=== PATIENT | male | born 1945 | race Caucasian/White ===

== ENCOUNTER 2021-08-07 19:13 | Inpatient (IN) | payer MEDICARE, SELFPAY ==
[2021-08-07] VITALS (25 sets, daily range): BP systolic 158–210; BP diastolic 67–91; PULSE 47–69; RESP 11–34; TEMP 36.1–36.3; O2SAT 93–98; BMI 24.4
--- NOTE | 2021-08-07 19:41 | ED.GENADUL_ITS ---
Discharge Plan Disposition Patient Disposition: [facility] INPATIENT Condition: Stable Discharge Details Clinical Impression: Esophageal foreign body Primary Care Provider: Unknown,Unknown ED Provider: Abiola Medrano Home Meds and New Rx's Prescriptions: No Action No Known Home Meds 0RF Medical Decision Making 75-year-old male presents to the ER after eating a piece of chicken while at dinner approximately 30 minutes prior to arrival. He states that the chicken was hot, he tried to spit it out and and he feels he may have aspirated the chicken. He is speaking in full sentences. She is retching up his secretions. Upon initial examination we did try the EZ gas flurries which patient was unable to tolerate. No stridor auscultated. 1947: 1 Milligram glucagon IV ordered, 0.5 mg of Ativan, x-ray soft tissue neck ordered. Will reevaluate and try the ED for his again after medications. 2027: Patient returned from x-ray, attempted EZ gas effervescent granules by staff genetic counselor and additional time. Unsuccessful. Patient does have suction at the bedside and is spitting up his secretions. 2035: patient given sips of noelle clau which he was unable to swallow. Imaging protocol: XR of the soft tissues of the neck. COMPARISON: No relevant prior studies available. FINDINGS: Airway: No radiopaque foreign body. No abnormal narrowing. Soft tissues: Epiglottis is normal.. Mild supraglottic gaseous distension of uncertain significance. Bones/joints: The bones are demineralized. Degenerative changes generally mild for age however moderate at C5-C6 where there is joint space narrowing and posterior osteophytosis. No acute fracture or subluxation. Vasculature: Atherosclerosis. IMPRESSION: No acute soft tissue pathology is seen. 2044: Will page surgery for possible scope for FB. 2112: Spoke with Dr. Chow regarding patient case in detail she recommends ordering a CT neck and chest to further differentiate. Order placed. Patient remains hemodynamically stable. Additional measures tried and continued EZ gas effervescient granules with no success. 2246: Spoke with Dr. Santana again regarding CT. There appears to be a foreign body in the upper thoracic esophagus. Dr. Santana to evaluate pt in ED. FINDINGS: Lungs: Mild pulmonary hyperinflation without airspace consolidation. Minor probable scarring in the right lung apex. Pleural spaces: No pneumothorax. No pleural effusion. Heart: Mild cardiomegaly. Mediastinal space: There is a relatively slightly dense focus of material in the upper thoracic esophagus. This measures 29 x 15 x 15 mm and expands the esophagus slightly at this location. No calcifications at this location. There is no significant proximal esophageal swelling. Aorta: Mild dilation of the ascending aorta. Normal caliber of the descending aorta.. Lymph nodes: No enlarged lymph nodes. Diaphragm: Moderate hiatal hernia. Bones/joints: Nonacute rib deformities. No acute fracture or subluxation. Soft tissues: Gynecomastia. IMPRESSION: 1. 29 x 15 x 15 mm probable food bolus in the upper thoracic esophagus. 2. Incidental findings as described. 2322: Dr. Chow he was surgery here at bedside for patient evaluation. She recommends an additional milligram of glucagon IV and lorazepam administration as ordered previously. Dr. Chow any consented patient for procedure and admission orders placed by her. Patient aware of the plan of care and is in agreement with plan. 2342: Max with Anesthesia here at for Patient eval. HPI General Mode of arrival: ambulatory . Date/Time Provider Initiated Documentation: 08/07/21 19:27 . Limitations to Documentation: no limitations . Information obtained by: patient, RN notes reviewed and old records reviewed . HPI Narrative: 75-year-old male presents to the ER after eating a piece of chicken while at dinner approximately 30 minutes prior to arrival. He states that the chicken was hot, he tried to spit it out and and he feels he may have aspirated the chicken. He is speaking in full sentences. She is retching up his secretions. Upon initial examination we did try the EZ gas flurries which patient was unable to tolerate. No stridor auscultated. Related Data Home Medications Medication Instructions Recorded Confirmed Unknown [No Known Home Meds] 08/07/21 08/07/21 Allergies Allergy/AdvReac Type Severity Reaction Status Date / Time No Known Allergies Allergy Unverified 08/07/21 19:36 General Stated Complaint: ThroatFB HOWARD: 2 PFSH All Active Problems (Updated 08/07/21 @ 23:25 by Genny Santaan DO) Esophageal foreign body (Acute) Social History Smoking/Tobacco Use Status: Never Smoking risk assessment performed?: Yes Alcohol Intake: never Drug use: Never Substance use type: does not use Do you feel safe at home: Yes Do you feel safe in your relationship?: Yes Course Vital Signs Vital signs: Vital Signs Temperature 36.1 C L 08/07/21 19:18 Pulse 63 08/07/21 19:18 Respiratory Rate 16 08/07/21 19:18 Blood Pressure 194/75 H 08/07/21 19:18 Pulse Oximetry 98 08/07/21 19:18 Temperature 36.1 C L 08/07/21 19:18 Pulse 63 08/07/21 19:18 Respiratory Rate 16 08/07/21 19:18 Respiratory Effort 08/07/21 19:37 Respiratory Pattern Normal 08/07/21 19:37 Blood Pressure 194/75 H 08/07/21 19:18 Pulse Oximetry 98 08/07/21 19:18 Pain Level 0 08/07/21 19:18
[2021-08-07] MEDS: Simethicone/Sod Bicarb/Cit Ac, 4 gram PACKET 1 PACKET PO (19:45)
--- NOTE | 2021-08-07 19:45 | DI.RAD_ITS ---
Exam(s) XR SOFT TISSUE NECK EXAM: XR SOFT TISSUE NECK CLINICAL HISTORY: R/O foreign body neck. TECHNIQUE: 2D digital imaging was performed. COMPARISON: No exams were available for comparison FINDINGS: BONES: No acute fracture is present. Degenerative disc changes greatest at C5-6. Facet degenerative changes greatest in lower cervical region. SOFT TISSUE:Airway is patent without radiopaque foreign body. Epiglottis is not enlarged. Prevertebra l soft tissues appear unremarkable. Calcifications in region of left common carotid bulb. IMPRESSION: No visible foreign body. DATA REPOSITORY: RADIATION DOSE DELIVERED:
[2021-08-07] MEDS: Glucagon 1 MG VIAL IVP ×2 (19:54→23:50)
--- NOTE | 2021-08-07 20:44 | DI.VRAD_ITS ---
PROCEDURE INFORMATION: Exam: XR Soft Tissue Neck Exam date and time: 08/07/2021 20:14 Age: 75 years old Clinical indication: Pain; Other: Discomfort; Patient HX: PT believes a piece of meat is stuck in his throat TECHNIQUE: Imaging protocol: XR of the soft tissues of the neck. COMPARISON: No relevant prior studies available. FINDINGS: Airway: No radiopaque foreign body. No abnormal narrowing. Soft tissues: Epiglottis is normal.. Mild supraglottic gaseous distension of uncertain significance. Bones/joints: The bones are demineralized. Degenerative changes generally mild for age however moderate at C5-C6 where there is joint space narrowing and posterior osteophytosis. No acute fracture or subluxation. Vasculature: Atherosclerosis. IMPRESSION: No acute soft tissue pathology is seen. Dictated and Authenticated by: Gosia Rosen MD. Ordering:DONNIE Culver MD
--- NOTE | 2021-08-07 21:00 | DI.CT_ITS ---
Exam(s) CT NECK CHEST WO EXAM: CT NECK CHEST WO CLINICAL HISTORY: FB Sensation, R/O Foreign body TECHNIQUE: Imaging Protocol: Axial computed tomography images with coronal and sagittal reformatted images were created and reviewed CONTRAST MATERIAL: Noncontrast COMPARISON: CR,XR XR SOFT TISSUE NECK from 08/07/2021 FINDINGS: Neck CT: Parotids/submandibular/thyroid gland: Normal. Lymphadenopathy: There is scattered lymph nodes seen along the level one to level three all measurin g less than 8 mm in short axis diameter which are physiologic in nature. Carotids/Jugular: Calcifications left common carotid bulb. Minimal calcification on the right. Soft tissues: The floor the mouth is unremarkable. The epiglottis and vocal cords are within normal limits. No evidence of foreign body. Bones: Degenerative changes greatest at C5-6. Chronic appearing mild anterior wedging of T7. Chest CT: Esophagus: Soft tissue density material in the upper thoracic esophagus measuring 15 x 15 x 2.9 cm. No evidence of perforation. There is no significant esophageal wall thickening. Moderate size hiata l hernia. Tracheobronchial tree: Patent where visualized. Mediastinum and Deidre: No dominant adenopathy or fluid collection. Pulmonary parenchyma: No consolidation or dominant measurable mass. Evaluation somewhat limited by re spiratory motion.. Pleura: No effusion or pneumothorax. Heart/Aorta: Atherosclerotic changes. Thoracic aorta ascending mildly ectatic at 3.9 cm.. The heart is dilated. Moderate to severe coronary artery calcifications are seen. Soft tissues: Mild bilateral symmetric gynecomastia. Bones: Old left rib fractures. Mild degenerative changes in the thoracic spine. IMPRESSION: Food bolus in the upper thoracic esophagus. No evidence of perforation or wall thickening. RADIATION DOSE DELIVERED: 684.79mGy.cm Total DLP DATA REPOSITORY: All CT scans at this facility are submitted to the National Radiology Data Registry (NRDR) Dose Index Registry (DIR) with the [employer] (A[employer]). RADIATION OPTIMIZATION: All CT scans at this facility use at least one of these dose optimization te chniques: automated exposure control; mA and/or kV adjustment per patient size (includes targeted exa ms where dose is matched to clinical indication); or iterative reconstruction.
[2021-08-07 21:35] LABS: Source Nasal/Nares
[2021-08-07 22:33] LABS: COVID-19 PCR Negative (Negative)
--- NOTE | 2021-08-07 22:35 | DI.VRAD_ITS ---
PROCEDURE INFORMATION: Exam: CT Neck Without Contrast Exam date and time: 08/07/2021 21:27 Age: 75 years old Clinical indication: Pain; Other: R/O fb; Other: Fb chicken; Patient HX: Possible aspiration fb/ piece of chicken TECHNIQUE: Imaging protocol: Computed tomography images of the neck without contrast. Radiation optimization: All CT scans at this facility use at least one of these dose optimization techniques: automated exposure control; mA and/or kV adjustment per patient size (includes targeted exams where dose is matched to clinical indication); or iterative reconstruction. COMPARISON: CR XR SOFT TISSUE NECK 08/07/2021 20:14 FINDINGS: Nasopharynx: Unremarkable. Oropharynx: Benign-appearing tonsilloliths without inflammation on noncontrast imaging. Hypopharynx: Unremarkable. Larynx: Normal epiglottis. Retropharyngeal space: Unremarkable. Submandibular/Parotid glands: Glands are normal in size. Thyroid: No enlarged or calcified nodules. Lymph nodes: No lymphadenopathy. Trachea: Visualized trachea is unremarkable. Lungs: Unremarkable as visualized. Esophagus: The cervical esophagus is normal in morphology. Bones/joints: Chronic bony changes including mild anterior loss of height at T1. No acute fracture or subluxation. Soft tissues: No significant soft tissue swelling. IMPRESSION: No focal pathology in the cervical esophagus. PROCEDURE INFORMATION: Exam: CT Chest Without Contrast; Diagnostic Exam date and time: 08/07/2021 21:27 Age: 75 years old Clinical indication: Pain; Other: R/O fb; Other: Fb chicken; Patient HX: Possible aspiration fb/ piece of chicken TECHNIQUE: Imaging protocol: Diagnostic computed tomography of the chest without contrast. Radiation optimization: All CT scans at this facility use at least one of these dose optimization techniques: automated exposure control; mA and/or kV adjustment per patient size (includes targeted exams where dose is matched to clinical indication); or iterative reconstruction. COMPARISON: CR XR SOFT TISSUE NECK 08/07/2021 20:14 FINDINGS: Lungs: Mild pulmonary hyperinflation without airspace consolidation. Minor probable scarring in the right lung apex. Pleural spaces: No pneumothorax. No pleural effusion. Heart: Mild cardiomegaly. Mediastinal space: There is a relatively slightly dense focus of material in the upper thoracic esophagus. This measures 29 x 15 x 15 mm and expands the esophagus slightly at this location. No calcifications at this location. There is no significant proximal esophageal swelling. Aorta: Mild dilation of the ascending aorta. Normal caliber of the descending aorta.. Lymph nodes: No enlarged lymph nodes. Diaphragm: Moderate hiatal hernia. Bones/joints: Nonacute rib deformities. No acute fracture or subluxation. Soft tissues: Gynecomastia. IMPRESSION: 1. 29 x 15 x 15 mm probable food bolus in the upper thoracic esophagus. 2. Incidental findings as described. Dictated and Authenticated by: Gosia Rosen MD. Ordering:DONNIE Culver MD
--- NOTE | 2021-08-07 23:19 | W.PM.HP.N ---
Date of service: 08/07/21 Time of Service: 22:49 Assessment and Plan Assessment and plan (1) Esophageal foreign body: Status: Acute Assessment and plan: -After discussing all risks, benefits and alternatives with the patient informed consent was obtained for esophagogastroduodenoscopy in the operating room for foreign body removal. -Discussed procedure and plan with patient's son Sergio as well. He can be reached at [phone]. -Covid NEGATIVE -Will likely keep overnight and discharge home in AM History of Present Illness Narrative: 75 year old male who was eating dinner around 5pm when a piece of chicken became lodged in his throat. Patient states the chicken was hot and he tried to spit it out but inadvertently swallowed it. He denies ever having this problem before and states he does not have any dysphagia at baseline. He has had an EGD once before in 2008 during which he was noted to have evidence of GERD but otherwise normal esophageal anatomy. He was given IV glucagon and EZ granules in the ER with little relief. X-ray was done without note of foreign body. This was followed up with a CT of the neck/chest to better determine location/presence of foreign body. CT confirmed presence of foreign body and due to failure of medical therapy we will proceed with emergent EGD for removal. Review of Systems All systems reviewed & are unremarkable except as noted in HPI and below PFSH All Active Problems (Updated 08/07/21 @ 23:25 by Genny Santana DO) Esophageal foreign body (Acute) Social History Smoking/Tobacco Use Status: Never Smoking risk assessment performed?: Yes Alcohol Intake: never Drug use: Never Substance use type: does not use Do you feel safe at home: Yes Do you feel safe in your relationship?: Yes Meds Allergies and Home Medications Allergies Allergy/AdvReac Type Severity Reaction Status Date / Time No Known Allergies Allergy Unverified 08/07/21 19:36 Home Medications Medication Instructions Recorded Confirmed Type Unknown [No Known Home Meds] 08/07/21 08/07/21 History Exam Const General: cooperative and acute distress (coughing intermittently) mild Nutritional Appearance: thin HENMT Head: normal to inspection, normocephalic and atraumatic Neck Neck: normal visual inspection and full ROM Resp Effort & Inspection: normal respiratory effort, able to speak in complete sentences, cough Quality of cough: wet and not labored Cardio Rate: regular rate Rhythm: regular rhythm GI Inspection: normal to inspection Palpation: soft, no guarding and nontender Neuro General: patient alert, patient awake and patient oriented x3 Results Labs Labs: Laboratory Results - last 24 hr 08/07/21 19:25 COVID-19 Source Nasal/Nares SARS-CoV-2 (PCR) Negative Last Vital Signs Temp 97.0 F L 08/07/21 19:18 Pulse 63 08/07/21 19:18 Resp 16 08/07/21 19:18 BP 194/75 H 08/07/21 19:18 Pulse Ox 98 08/07/21 19:18
[2021-08-07] MEDS: LORazepam 2 MG/ML VIAL (23:50)
--- NOTE | 2021-08-07 23:56 | W.ANESPRE ---
General Info Date of Service Date Performed: 08/07/21 Height: 5 ft 11 in Weight: 79.379 kg Body Mass Index (BMI): 24.4 Surgical Procedure: Operation Date: 08/07/21 23:30 Proposed Procedure Side Surgeon p Gastroscopy Genny Santana, DO Meds Allergies and Home Medications Allergies Allergy/AdvReac Type Severity Reaction Status Date / Time No Known Allergies Allergy Unverified 08/07/21 19:36 Home Medication Medication Instructions Recorded Unknown [No Known Home Meds] 08/07/21 Current Visit Medications: Current Medications Generic Name Dose Route Start Last Admin Trade Name Freq PRN Reason Stop Dose Admin Sodium Chloride 500 mls @ 0 mls/hr 08/07/21 23:27 Saline 500ml Bag IV PRN PRN As Directed Acetaminophen 1,000 mg in 100 mls @ 400 mls/hr 08/07/21 23:27 Ofirmev IVPB Q8H PRN PRN IV Miscellaneous Supplies 1 each 08/07/21 23:30 Iv Access IV DIRECTED LUCINA Ondansetron HCl 4 mg 08/07/21 23:27 Ondansetron 4 Mg/2 Ml Vial IVP Q4H PRN PRN Pantoprazole Sodium 40 mg 08/08/21 08:00 Pantoprazole 40 Mg Vial IVP Q24H LUCINA Sodium Chloride 0 ml 08/07/21 23:27 Normal Saline Flush 10 Ml Syr IVP PRN PRN PFSH Active Problems Active Problems: Problem Status Onset Code Esophageal foreign body [id number] Tobacco Smoking/Tobacco Use Status: Never Alcohol Alcohol Intake: never Substance Use Substance use: Never Substance use type: does not use Vital Signs and Lab Results Vital Signs Most Recent Vital Signs in EMR: Most Recent Vital Signs Temp Pulse Resp BP Pulse Ox 36.3 C L 49 L 12 176/69 H 95 08/07/21 23:55 08/07/21 21:17 08/07/21 23:40 08/07/21 21:17 08/07/21 22:50 Lab Results Blood Type / Crossmatch: No Data to Display Complete Blood Count: No Data to Display Complete Metabolic Panel: No Data to Display Liver Function Panel: No Data to Display Coagulation Panel: No Data to Display Cardiac Panel: No Data to Display Arterial Blood Gas: No Data to Display Venous Blood Gas: No Data to Display Pancreas Panel: No Data to Display Thyroid Panel: No Data to Display Infectious Disease: Coronavirus (COVID-19)(PCR) Negative (Negative) 08/07/21 19:25 08/07/21 Coronavirus 2019 Source Nasal/Nares 08/07/21 19:25 08/07/21 Blood Cultures: No Data to Display Toxicology Panel: No Data to Display Anesthesia Assessment and Plan Anesthesia History Personal History: No History of Anesthesia Complications Family History: No Family History of Anesthesia Complications Exercise Tolerance Exercise Tolerance: Metabolic Equivalents>4 Pertinent Negatives Pertinent Negatives: No Symptoms of GERD, No Major Cardiovascular Symptoms or Complaints, No Major Pulmonary Symptoms or Complaints and No History of CVA/TIA Cardiac & Pulmonary Exam Cardiac Exam: Normal S1/S2 Heart Sounds Pulmonary Exam: Clear Bilateral Breath Sounds Implantable Cardiac Device Does patient have a Pacemaker or an ICD?: No Airway Exam Known Difficult Airway: No Mallampati Class: 3 Mouth Opening: Narrow (< 3cm) Thyromental Distance: Greater than 3 cm Neck Range of Motion: Full ROM Neck Circumference: Normal Teeth Condition: Removable Dentures/Plates Upper, Removable Dentures/Plates Lower and Edentulous ASA Classification ASA Score: ASA 2 Emergency Case?: Yes NPO Status NPO Status: Full Stomach Anesthesia Plan Resuscitation Status: Full Code Anesthesia Technique: General Anesthesia Airway Planned: Endotracheal Tube Monitors Used: Standard Monitors
[2021-08-08] VITALS (8 sets, daily range): BP systolic 117–205; BP diastolic 62–81; PULSE 53–71; RESP 13–22; TEMP 35.6–36.6; O2SAT 95–96
[2021-08-08] MEDS: Water,Injection,Sterile 10 ML VIAL (00:15)
[2021-08-08] MEDS: Lactated Ringers 1,000 ML 50 ML IV (00:40)
--- NOTE | 2021-08-08 02:02 | W.PM.ENDDOP ---
Date of service: 08/08/21 Time of Service: 02:02 Endoscopy Report DATE OF PROCEDURE: 08/08/21 PRE-OP DIAGNOSIS: Esophageal foreign body POST-OP DIAGNOSIS: same PROCEDURE: EGD with removal of foreign body SURGEON: Genny Santana ANESTHESIA TYPE: General LMA/ETT ESTIMATED BLOOD LOSS: 0 PATHOLOGY: none sent COMPLICATIONS: None DISPOSITION: floor INDICATIONS: Patient with reported history of choking on chicken during dinner with continued sensation of foreign body in throat. Medical therapies were attempted but failed. After discussing all risks, benefits and alternatives, informed consent was obtained from the patient to proceed with EGD in the operating room. PROCEDURE START TIME: 12:55 PROCEDURE END TIME: 01:55 COLONOSCOPY RETRACTION TIME: n/a FINDINGS: Large solid piece of chicken lodged within the upper esophagus. Once cleared, esophagus appeared normal. Z line at 40cm, stomach also within normal limits. No biopsies taken. See pictures in chart. PROCEDURE DESCRIPTION: After discussing all risks, benefits and alternatives with the patient, informed consent was obtained for emergent EGD to remove food bolus stuck within patient's esophagus. Patient received two doses of glucagon in the ER as well as EZ granules without success. After induction of general anesthesia was performed, a time out procedure was performed confirming the correct patinet and procedure. Preop antibiotics were not necessary for this case. The scope was introduced through the patients adentuous mouth and into the oropharynx and larynx which appeared normal. The top portion of his esophagus was intubated and at ~20cm the piece of chicken was encountered obstructing the lumen of the esophagus. Gentle suction and pressure was applied to see if the piece would move freely but it did not. Forceps were used to pull pieces of the chicken out through the mouth but only with tiny pieces at a time. A snare was then used to grasp the chicken but again only small amounts at a time. I was able to see clear past the chicken but was unable to dislodge it. After multiple passes of the snare and grasper I was ultimately able to free the chicken enough for it to gently pass into the stomach with the assistance of the scope. Other pieces of undigested chicken were present in the stomach. The remainder of the esophagus and stomach appeared anatomically normal. Pictures were taken for the patient's chart. No biopsies were obtained at this time. Patient tolerated the procedure well without any complications. He will be observed overnight and likely discharged in the morning. His son Sergio was updated via telephone. Patient should remain on a soft mechanical diet as some upper oropharynx and esophageal swelling may occur due to irritation from the gastroscope as well local irritation from foreign body presence.
--- NOTE | 2021-08-08 02:54 | W.ANESPOSTOP ---
Postoperative Evaluation Date, Time and Location Date Performed: 08/08/21 Time Performed: 02:54 Patient Location: Day Surgery Unit Vital Signs Most Recent Imported Vital Signs: Most Recent Vital Signs Temp Pulse Resp BP Pulse Ox 36.6 C 57 L 14 202/79 H 95 08/08/21 02:27 08/08/21 02:27 08/08/21 02:27 08/08/21 02:27 08/08/21 02:27 Pain Score Most Recent Pain Score: Most Recent Pain Score Pain Level 0 08/08/21 02:27 Assessment Mental Status: Awake (Alert & Oriented to Patient Baseline) Airway and Respiratory Function: Patent airway with normal (patient baseline) respiratory exam Cardiovascular Function: Hemodynamically Stable Hydration Status: Adequately Hydrated Nausea & Vomiting: No Nausea or Vomiting Pain: Pt. Denies Any Pain Peripheral Nerve Block: Patient did not receive a nerve block
--- NOTE | 2021-08-08 08:24 | W.PM.DS.N ---
Date of service: 08/08/21 Time of Service: 08:24 DS: Diagnosis Discharge Diagnosis (1) Esophageal foreign body: Status: Acute Discharge Plan Disposition Patient Disposition: HOME Condition: Stable Discharge Details Reason For Visit: Esophageal Foreign Body Admit Date/Time: 08/08/21 02:49 Admit Provider: Genny Santana Attending Provider: Genny Santana Primary Care Provider: Unknown,Unknown Hospital Course Hospital Course: 75 y/o male presented tot he ER after eating dinner with complaints of chicken being lodged in his throat. Patient failed medical management and was taken to the OR for foreign body removal. The food bolus was successfully removed. The patient is feeling much better. Denies any pain or soreness with swallowing. Patient will be d/c home. Strongly encouraged the patient to establish PCP care for follow up and for monitoring of BP. D/C home Home Meds and New Rx's Prescriptions: No Action No Known Home Meds 0RF Discharge Instructions Activity:: Activity as Tolerated Equipment/Supplies:: No Equipment Needed Diet:: Normal Diet Discharge Orders Discharge Orders: Discharge Order (Routine); Ordered 08/08/21 Ordered By: Elizabeth Leroy DS: Summary Time Spent with Patient providing and/or coordinating discharge services: Less than 30 minutes Status at Discharge Functional status at discharge: independent ambulation Overall status at discharge: patient is back to baseline Mental Status: mental status grossly normal Speech and Movement: speech and movement normal Mood: congruent mood Affect: normal affect Exam Const General: cooperative, healthy appearing and comfortable Orientation: alert and oriented x3 Resp Effort & Inspection: normal respiratory effort, no audible wheezes and no cough Psych Mental Status: mental status grossly normal Speech and Movement: speech and movement normal Mood: congruent mood Affect: normal affect DS: Data Vitals/I&O Vitals and I&O: Vital Signs Temperature 36.3 C L 08/08/21 08:00 Temperature Source Tympanic 08/08/21 08:00 Pulse 60 08/08/21 08:00 Pulse Rhythm Regular 08/08/21 03:15 Pulse 67 08/07/21 23:40 Respiratory Rate 18 08/08/21 08:00 Respiratory Effort 08/08/21 03:15 Respiratory Depth Normal 08/08/21 03:15 Respiratory Pattern Normal 08/08/21 02:51 Blood Pressure 175/79 H 08/08/21 08:00 Blood Pressure Mean 99 08/07/21 21:17 Pulse Oximetry 96 08/08/21 08:00 Oxygen Delivery Method Room Air 08/08/21 08:00 Oxygen Flow Rate 0 08/08/21 08:00 Pain Level 0 08/08/21 08:00 Intake & Output 08/07/21 08/08/21 08/08/21 18:59 06:59 18:59 Intake Total 512.5 / 512.5 Output Total 0 / 0 Balance 512.5 / 512.5 Weight 158.2 g Intake: IV 512.5 / 512.5 Oral 0 / 0 Output: Emesis 0 / 0 Other: Emesis Description None Data Completed and Pending Labs on day of discharge: Labs from last 24 hours 08/07/21 19:25 COVID-19 Source Nasal/Nares SARS-CoV-2 (PCR) Negative PFSH All Active Problems (Updated 08/07/21 @ 23:25 by Genny Santana DO) Esophageal foreign body (Acute) Social History Smoking/Tobacco Use Status: Never Smoking risk assessment performed?: Yes Alcohol Intake: never Drug use: Never Substance use type: does not use Do you feel safe at home: Yes Do you feel safe in your relationship?: Yes
== END 2021-08-08 08:58 | disposition home or self-care (01) | DRG 395 ==
LOC: ER 23:31 → SUR 08-08 02:42 → MS 08-08 02:53 → ER 08-08 08:45 → SUR 08-08 08:47 → MS 08-08 09:07
PROVIDERS: Admitting Provider Surgery; Emergency Provider Registered Nurse Emergency; Visit Provider Surgery
PROC: 0DJ68ZZ Inspection of Stomach, Via Natural or Artificial Opening Endoscopic (ICD-10-PCS; CPT 43235; principal; 2021-08-07 23:30)
DX: T18.128A Food in esophagus causing other injury, initial encounter (principal)
CPT/HCPCS: 43215; 71271; 87635; 96374; 99222; 99238; 99285; 70360; 70490; J1100; J1610; J1885; J2060; J2704

== ENCOUNTER 2024-06-15 17:14 | Inpatient (IN) | payer MEDICARE, SELFPAY ==
[2024-06-15] VITALS (65 sets, daily range): BP systolic 118–182; BP diastolic 37–76; PULSE 48–64; RESP 13–22; TEMP 37.6–38.7; O2SAT 81–97
--- NOTE | 2024-06-15 17:15 | RT.EKG_ITS ---
APPROVED REPORT Exam: Resting ECG Reason for Exam: confusion Patient Location: E HR:60 bpm ECG Measurements Heart Rate 60 AXIS ID 206 P 3 QRSd 88 QRS -22 QT 378 T 47 QTc 379 Conclusion Sinus rhythm 60 normal axis no stemi
--- NOTE | 2024-06-15 17:46 | W.ED.GENAD ---
Discharge Plan Disposition Patient Disposition: Admit to [facility] Discharge Details Clinical Impression: Encephalopathy due to influenza A virus Primary Care Provider: María Elena Bradley ED Provider: Candice Mendoza Home Meds and New Rx's Prescriptions: No Action No Known Home Meds HPI General Date/Time Provider Initiated Documentation: 06/15/24 17:34. HPI Narrative: Husam (prefers Enrique) is a 78 year old male who presents to the emergency department today for evaluation of sudden onset of confusion and unsteadiness. Son reports that Enrique lives in a separate part of the house from him, but they spend a lot of time together. Last known well 1 PM. 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 He was brought immediately to the emergency department because they are concerned it might be a stroke or acute illness. He was found to be febrile in triage. Son reports a mild cough starting today. Enrique denies headache, dizziness, vision changes, ear pain, sore throat, chest pain, shortness of breath, nausea/vomiting, abdominal pain, change in bowel or bladder function, or weakness. Denies significant past medical history, is not currently on any medications. No history of tobacco use. Physical exam remarkable for patient who is alert and oriented x 2, in no acute distress. He is able to answer questions and follow most commands, however had trouble with neurological exam. He was able to complete finger to finger with left eye covered, but was unable to perform the same with the right eye covered. No obvious facial palsy or upper/lower extremity drift. NIHSS score 0. PERRL, EOMs intact., Unable to visualize TMs. No cervical or submandibular lymphadenopathy. Moist mucous membranes. Easy work of breathing, lung sounds clear bilaterally. Normal heart sounds. Abdomen soft, nondistended, nontender palpation. No obvious JVD or pedal edema. D/dx includes but is not limited to: CVA/TIA, occult infection such as pneumonia or UTI, viral illness such as COVID-19 or influenza, electrolyte imbalance, cardiac arrhythmia, ACS, dehydration, hypoglycemia I independently interpreted the following tests: EKG reassuring, normal sinus rhythm rate 60, no changes consistent with acute ischemia. Flu a positive, COVID-negative. CBC, CMP, UA, serial troponins reassuring. Mild hypomagnesemia, magnesium 1.7. Chest x-ray unremarkable, no obvious infiltrates. This was confirmed by radiologist. CTA of head performed, no evidence of large vessel occlusion, however patient does have a 7 mm hypodensity in left posterior subinsular distribution that may be chronic or subacute acute lacunar infarct. Moderate to severe stenosis noted in the left vertebral artery proximal V4/distal V3 segment, left MOVING PICTURE OPERATOR P1 segment, and right vertebral artery proximal V4 segment. Moderate 50% ostial stenosis of left vertebral artery and short segment tandem moderate stenosis of 60 to 70% 1.5 cm downstream. While in the emergency department, Bill received Tamiflu and Tylenol for fever and flu. Discussed case with Dr. Coyle, [facility] hospitalist; pt to be admitted (held in ED) Related Data Home Medications ?Medication ?Instructions ?Recorded ?Confirmed Unknown [No Known Home Meds] 08/07/21 06/15/24 Allergies Allergy/AdvReac Type Severity Reaction Status Date / Time No Known Allergies Allergy Verified 06/15/24 17:32 General Stated Complaint: AMS/LOC HOWARD: 3 Review of Systems Narrative: See HPI Exam Const General: cooperative, comfortable, no acute distress, well developed and well groomed Nutritional Appearance: average body habitus Orientation: alert, oriented to person, oriented to time and confused Limitations: altered mental status HENMT Head: normal to inspection, normocephalic and atraumatic Ears: hearing grossly normal bilaterally, mastoids normal and unable to visualize TM bilaterally General nose exam: external nose normal Face and sinus: normal facial exam Mouth: oral mucosae normal Eyes Periorbital: periorbital findings normal Pupils: PERRL EOM: EOM intact bilaterally Neck Neck: normal visual inspection, no lymphadenopathy and no meningeal signs Resp Effort & Inspection: normal respiratory effort and able to speak in complete sentences Auscultation: clear to auscultation bilaterally Cardio Rate: regular rate Rhythm: regular rhythm GI Inspection: normal to inspection and non-distended Palpation: soft, not firm, no guarding, not rigid and nontender Skin General skin exam: no rashes or lesions noted Neuro General: patient alert, patient awake, tone normal, moves all extremities and no focal motor deficits Cranial Nerves: PERRL, EOM intact bilaterally, facial strength normal (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), tongue midline and able to rotate head bilaterally Speech: speech normal Motor: muscle tone normal throughout and strength 5/5 throughout Sensory Exam: no sensory deficits noted Coordination: rapid alternating movement UE normal Extrem General: normal to inspection and no pedal edema Course Vital Signs Vital signs: Vital Signs Temperature 38.6 C H 06/15/24 17:25 Pulse 61 06/15/24 17:25 Blood Pressure 182/76 H 06/15/24 17:25 Pulse Oximetry 94 06/15/24 17:25 Temperature 38.6 C H 06/15/24 17:25 Pulse 61 06/15/24 17:25 Blood Pressure 182/76 H 06/15/24 17:25 Pulse Oximetry 94 06/15/24 17:25 Pain Level 0 06/15/24 17:25 Medical Decision Making Imaging Data Radiologic Study: Radiologist's impression: PROCEDURE INFORMATION: Exam: CTA Head Without And With Contrast, Arteriography Exam date and time: 06/15/2024 6:14 PM Age: 78 years old Clinical indication: Stroke-like symptoms; Altered mental status/memory loss; Additional info: Confusion TECHNIQUE: Imaging protocol: Computed tomographic angiography of the head without and with contrast. Exam focused on the arteries. 3D rendering (Not supervised by radiologist): MIP and/or 3D reconstructed images were created by the technologist. Contrast material: OMNIPAQUE 350; Contrast volume: 70 ml; Contrast route: INTRAVENOUS (IV); Other technique: STROKE PROTOCOL was implemented. COMPARISON: CT NECK CHEST WO 08/07/2021 9:27 PM FINDINGS: ANTERIOR CIRCULATION: HUSAM JONES Preliminary Radiology Report Page 2 of 4 Right internal carotid artery: The right ICA petrous segment is unremarkable. Cavernous and supraclinoid segments demonstrate moderate calcific plaque without significant stenosis. Right middle cerebral artery: Unremarkable. No occlusion or significant stenosis. No aneurysm. Right anterior cerebral artery: Unremarkable. No occlusion or significant stenosis. No aneurysm. The anterior communicating artery is unremarkable. Left internal carotid artery: Petrous segment demonstrates mild calcific plaque without significant stenosis. Cavernous segment demonstrates moderate calcific plaque without significant stenosis. Supraclinoid segment demonstrates moderate calcific plaque without significant stenosis. Left middle cerebral artery: Unremarkable. No occlusion or significant stenosis. No aneurysm. Left anterior cerebral artery: Left A1 segment is dominant. No occlusion or significant stenosis. No aneurysm. POSTERIOR CIRCULATION: Right vertebral artery: Short segment moderate mixed plaque in the proximal V4 segment producing moderate 50-60% stenosis. No occlusion. No aneurysm. Left vertebral artery: Atherosclerotic contour irregularity mild-moderate mixed plaque in the distal V3 to proximal V4 segment producing short segment moderate-severe 70% stenosis. No occlusion. No aneurysm. Basilar artery: Mild atherosclerotic contour irregularity. No occlusion or significant stenosis. No aneurysm. Right posterior cerebral artery: Unremarkable. No occlusion or significant stenosis. No aneurysm. Left posterior cerebral artery: Atherosclerotic contour irregularity with moderate 60-70% P1 segment stenosis. Normal symmetrical downstream flow preserved. No aneurysm. Other arteries: Moderate calcific atherosclerosis. Veins: The dural venous sinuses and major cortical veins enhance appropriately without evidence of thrombosis. Right dominant venous drainage. HEAD: Brain: Mild generalized cerebral/cerebellar atrophy. Mild periventricular bilateral white matter hypodensities which are nonspecific but most commonly associated with chronic microvascular ischemia in this age group. The IACs are grossly normal. No extra-axial fluid collections. No evidence of acute intracranial hemorrhage. Cerebral/cerebellar rossi-white matter differentiation is well maintained. No CT evidence of large territory acute or subacute intracranial ischemia/infarct. 7 mm hypodensity in the left posterior subinsular distribution consistent with chronic or subacute lacunar infarct. No associated mass effect or hemorrhage. No intracranial mass lesions. No midline shift or herniation. No enhancing brain lesions or vascular malformations are identified. Cerebral ventricles: Mild compensatory ventriculomegaly secondary to central atrophy. Pituitary gland and sella: The sella is grossly normal. Bones: No acute osseous findings. Orbital cavities: No acute intraorbital findings. Prior bilateral ocular cataract surgery. Paranasal sinuses: Visualized paranasal sinuses are clear. Mastoid air cells: Visualized mastoid air cells are clear. Soft tissues: No acute soft tissue findings. Other findings: No asymmetric vascular hyperdensities suggestive of thrombosis are identified. IMPRESSION: 1. No large vessel occlusions. 2. 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 3. Moderate 60-70% stenosis in the left MOVING PICTURE OPERATOR P1 segment. 4. Moderate 50-60% stenosis in the right vertebral artery proximal V4 segment. 5. 7 mm hypodensity in the left posterior subinsular distribution could be chronic or late subacute lacunar infarct. No hemorrhage or mass effect. 6. No intracranial hemorrhage or mass effect. 7. These findings initiated a critical results reporting process. PROCEDURE INFORMATION: Exam: CTA Neck Without And With Contrast Exam date and time: 06/15/2024 6:14 PM Age: 78 years old Clinical indication: Stroke-like symptoms; Altered mental status/memory loss; Additional info: Confusion TECHNIQUE: Imaging protocol: Computed tomographic angiography of the neck without and with contrast. Exam focused on the cervical segments of the vasculature. 3D rendering (Not supervised by radiologist): MIP and/or 3D reconstructed images were created by the technologist. Contrast material: OMNIPAQUE 350; Contrast volume: 70 ml; Contrast route: INTRAVENOUS (IV); COMPARISON: CT NECK CHEST WO 08/07/2021 9:27 PM FINDINGS: Right common carotid artery: Mild tortuosity. Mild calcific plaque. No stenosis. No dissection or occlusion. Right internal carotid artery: Mild-moderate mixed calcific plaque in the left carotid bulb and proximal ICA. Moderate distal tortuosity with mild kinking but no significant stenosis. No dissection or occlusion. Right external carotid artery: Mild ostial calcific plaque. Mild tortuosity and kinking. No significant stenosis. No dissection or occlusion. Left common carotid artery: Mild tortuosity. No stenosis. No dissection or occlusion. Left internal carotid artery: Moderate calcific plaque in the left carotid bulb and proximal most ICA segment. Mild-moderate distal tortuosity. Moderate 50% stenosis in the proximal ICA segment. No dissection or occlusion. Left external carotid artery: Mild tortuosity. No stenosis. No dissection or occlusion. Right vertebral artery: Mild tortuosity and calcific plaque, otherwise normal cervical segment. No significant stenosis. No dissection or occlusion. Left vertebral artery: Anatomic variant origin of the left vertebral artery directly from the aortic arch. Ostial mixed plaque produces moderate 50% ostial stenosis. There is also tandem moderate stenosis of 60-70% about 1.5 cm from the ostium. No dissection or occlusion. Brachiocephalic artery: The brachiocephalic artery demonstrates mild calcific plaque without stenosis. Right subclavian artery: The right subclavian artery demonstrates mild calcific plaque without stenosis. Left subclavian artery: The left subclavian artery demonstrates mild calcific plaque without stenosis. Aorta: The visualized aortic arch demonstrates mild-moderate ectasia and calcific plaque without evidence of dissection or gross aneurysm. Thyroid: 11 mm low-density nodule in the right thyroid lobe which does not require further evaluation. Soft tissues: No significant soft tissue swelling or hematoma. Bones/joints: No acute osseous abnormalities are identified. Chronic moderate superior endplate compression deformity C7. Lungs: Mild to moderate right and mild left apical pleuroparenchymal scarring. Granulomatous calcification in the right upper lobe. IMPRESSION: 1. No evidence of arterial occlusion, dissection, or aneurysm/pseudoaneurysm. 2. Moderate 50% ostial stenosis of the left vertebral artery, which has a variant origin directly from the aortic arch. There is also a short segment tandem moderate stenosis of 60-70% about 1.5 cm downstream from this. 3. Additional nonemergent findings detailed above. REFERENCES: NASCET CRITERIA. The degree of stenosis in the cervical segment of the internal carotid artery is based on NASCET criteria. Normal is no stenosis. Mild is less than 50% stenosis. Moderate is 50- 69% stenosis. Severe is 70% to 99% stenosis. Total occlusion is no detectable patent lumen. Thank you for allowing us to participate in the care of your patient. Dictated and Authenticated by: Darron Henderson MD 06/15/2024 8:25 PM Eastern Time ([place] & [place]) Quality:SDOH Health Related Social Needs: No Data to Display PFSH All Active Problems (Updated 06/15/24 @ 22:51 by Cesar Coyle) Hypomagnesemia (Acute) Influenza A H1N1 infection (Acute) TIA (transient ischemic attack) (Acute) Encephalopathy due to influenza A virus (Acute) Pain, foot (Acute) Ingrowing nail (Acute) Corns and callosities (Acute) Medical History Fracture Multiple, cervical and lumbar. S/p fall in early . Social History Smoking/Tobacco Use Status: Never Smoking risk assessment performed?: Yes Alcohol Intake: never Drug use: Never Substance use type: does not use Housing: apartment Do you feel safe at home: Yes Do you feel safe in your relationship?: Yes
[2024-06-15 17:53] LABS: Abs Immature Grans 0.02 10^3/uL (0.0-0.06); Absolute Basophil Count 0.02 10^3/uL (0.0-0.2); Absolute Eosinophil Count 0.04 10^3/uL (0.0-0.7); Absolute Lymphocyte Count 0.29 10^3/uL (1.2-3.4); Absolute Monocyte Count 0.32 10^3/uL (0.1-0.8); Absolute Neutrophil Count 7.32 10^3/uL (1.2-6.7); Basophils % 0.2 %; Eosinophils % 0.5 %; HCT 42.8 % (40.0-50.0); HGB 13.5 g/dL (13.5-17.5); Immature Grans % 0.2 %; Lymphocytes % 3.6 %; MCH 27.4 pg (27.0-33.0); MCHC 31.5 % (32.0-36.0); MCV 87 fL (80-95); MPV 8.8 fL (8.0-11.0); Neutrophils % 91.5 %; Platelet Count 197 10^3/uL (130-400); RBC 4.92 10^6/uL (4.36-5.78); RDW 15.5 % (11.8-14.1); WBC 8.01 10^3/uL (4.4-10.8)
--- NOTE | 2024-06-15 18:00 | DI.CT_ITS ---
Exam(s) CT BRAIN NECK CTA EXAM: CT BRAIN NECK CTA CLINICAL HISTORY: new confusion, unable to perform neuro exam. TECHNIQUE: Imaging Protocol: Axial CT angiography was performed with multi-slice acquisition and mu lti-planar and MIP reconstructions. CONTRAST MATERIAL: Intravenous: Omnipaque 350 Contrast volume:70 ml COMPARISON: CT CT NECK CHEST WO from 08/07/2021 FINDINGS: CT Head W/O and W contrast: Ventricles and Extra axial spaces: Normal in size and morphology for the patient's age. Hemorrhage: None. Cerebral parenchyma: No evidence of acute infarct or mass. Mild white matter changes of small vess el disease. Midline shift: None. Brainstem/Cerebellum: No acute findings.. Calvarium: Normal. Visualized Paranasal sinuses/Mastoids: Clear. Soft Tissues: Unremarkable. Enhancement: Normal. CTA Brain W: Internal Carotid Arteries: Petrous: Normal. Cavernous: Moderate calcific plaque without significant stenosis. Cerebral: Moderate calcific plaque without significant stenosis. Middle Cerebral Arteries: Right: No aneurysm, occlusion or significant stenosis. Left: No aneurysm, occlusion or significant stenosis. Anterior Cerebral Arteries: Right: No aneurysm, occlusion or significant stenosis. Left: Dominant. No aneurysm, occlusion or significant stenosis. Posterior cerebral Arteries: Right: No aneurysm, occlusion or significant stenosis. Left: Irregular atheromatous sclerotic plaque causing moderate stenosis at the P1 segment, approximat lolly 60-70 percent. No aneurysm, occlusion. Vertebral Arteries: Right: Moderate practiced the proximal V4 segment causing roughly 50 percent stenosis. No aneurysm. Left: Mixed plaque of distal V3 through proximal V4 segment producing moderate to severe stenosis of approximately 70 percent. No aneurysm, Basilar Artery: Mild atherosclerotic plaque. No aneurysm, occlusion or significant stenosis. Venous sinuses: Patent. CTA Neck W: Common Carotid: Right: No dissection, occlusion or significant stenosis. Left: No dissection, occlusion or significant stenosis. External Carotid: Right: Tortuous. No dissection, occlusion or significant stenosis. Left: Mildly tortuous. No dissection, occlusion or significant stenosis. Internal Carotid: Right: Tortuous distally. No dissection, occlusion or significant stenosis. Left: Moderate plaque at the common carotid bulb and proximal ICA causing approximately [address] enosis. No dissection, occlusion or significant stenosis. Vertebral Artery: Right: Mildly tortuous. No dissection, occlusion or significant stenosis. Left: Rises directly from the aortic arch. Approximate 50 percent stenosis at the origin due to mixe d plaque. Approximate 60-70 percent stenosis the proximal vertebral artery approximate 1.5 centimete rs from the ostium. No dissection, occlusion or significant stenosis. Lung Apices: No acute findings. Bones: No acute abnormality. Soft Tissues: Normal. IMPRESSION: 1. CTA brain: Moderate to severe stenosis in the the distal left vertebral artery, proximal V4 segmen t. Moderate stenosis in the left neck P1 segment. Moderate stenosis of the proximal V4 segment of t he right vertebral artery. 2. Head CT: No acute abnormality. 3. CTA neck: There is an approximate 50 percent stenosis at the ostium of the left vertebral artery. Additional 70 - 60 percent stenosis approximately 1.5 cm distal to the ostium. Moderate plaque at t he common carotid bulb and proximal ICA causing approximately 50 percent stenosis. RADIATION DOSE DELIVERED: 2,131.69mGy.cm Total DLP DATA REPOSITORY: All CT scans at this facility are submitted to the National Radiology Data Registry (NRDR) Dose Index Registry (DIR) with the [employer] (A[employer]). RADIATION OPTIMIZATION: All CT scans at this facility use at least one of these dose optimization te chniques: automated exposure control; mA and/or kV adjustment per patient size (includes targeted exa ms where dose is matched to clinical indication); or iterative reconstruction.
--- NOTE | 2024-06-15 18:00 | DI.RAD_ITS ---
Exam(s) XR CHEST 2V PA LATERAL EXAM: XR CHEST 2V PA LATERAL CLINICAL HISTORY: cough TECHNIQUE: 2D digital imaging was performed. Two views. COMPARISON: CR CHEST ONE VIEW IN RAD DEPT from 01/25/[address] NECK CHEST WO from 08/07/2021 FINDINGS: HEART: Normal mildly enlarged. Aorta: Tortuous. PULMONARY VASCULATURE: Normal. MEDIASTINUM: Unremarkable. LUNGS: Clear. PLEURAL SPACE: No pleural effusion or pneumothorax. BONE:Mild upper thoracic compression fracture, new since prior chest CT. At the lower edge of the fi lm there is a moderate compression fracture which may be L1. SOFT TISSUES: Unremarkable. IMPRESSION: No acute abnormality. DATA REPOSITORY: RADIATION DOSE DELIVERED:
[2024-06-15 18:11] LABS: ALT 22 U/L (16-63); AST 15 U/L (15-37); Albumin 3.5 g/dL (3.4-5.0); Alkaline Phosphatase 95 U/L (46-116); Anion Gap 6.6 mmol/L (3-11); BUN 12 mg/dL (7-18); Bilirubin, Total 0.42 mg/dL (0.2-1.0); CO2 30.4 mmol/L (21.0-32.0); Calcium 8.5 mg/dL (8.5-10.1); Chloride 102 mmol/L (98-107); Estimated GFR 77.52 (mL/min/1.73m2); Glucose 109 mg/dL (74-106); Magnesium 1.7 mg/dL (1.8-2.4); Potassium 4.4 mmol/L (3.5-5.1); Sodium 139 mmol/L (136-145); Total Protein 6.8 g/dL (6.4-8.2); Troponin I 13 ng/L (<or=76)
[2024-06-15] MEDS: Normal Saline - Diluent 50 ML VIAL IJ (18:14)
[2024-06-15] MEDS: Omnipaque 350 MG/ML 100 ML BTL IJ (18:16)
[2024-06-15 18:54] LABS: Bilirubin Negative (Negative); Blood Negative (Negative); Clarity Clear (Clear); Glucose Negative (Negative); Ketones Negative (Negative); Leukocyte Esterase Negative (Negative); Nitrite Negative (Negative); Specific Gravity 1.015 (1.005-1.025); Urobilinogen 0.2 mg/dL (Up to 0.2); pH 5.5 (5-8)
[2024-06-15 19:25] LABS: COVID-19 PCR Negative (Negative); Influenza A PCR Positive (Negative); Influenza B PCR Negative (Negative); RSV PCR Negative (Negative); Source NASOPHARYNX
--- NOTE | 2024-06-15 19:50 | DI.VRAD_ITS ---
PROCEDURE INFORMATION: Exam: XR Chest Exam date and time: 06/15/2024 6:27 PM Age: 78 years old Clinical indication: Cough TECHNIQUE: Imaging protocol: Radiologic exam of the chest. Views: 2 views. COMPARISON: CT NECK CHEST WO 08/07/2021 9:27 PM FINDINGS: Lungs: Lungs are symmetrically hyperinflated. No focal consolidation or evidence of pulmonary edema. Pleural spaces: No pleural effusion. No pneumothorax. Heart/Mediastinum: Cardiomediastinal contours are at the upper limits of normal for size. Vasculature: Descending thoracic aorta is tortuous in course. There are vascular calcifications of the aortic arch. Bones/joints: Partially visualized upper lumbar vertebral body compression deformity of uncertain chronicity, incompletely evaluated on this exam. IMPRESSION: 1. No focal consolidation. 2. Hyperinflation. 3. Age-indeterminate upper lumbar vertebral body compression deformity incompletely evaluated on this exam. Correlate clinically. Dictated and Authenticated by: Nghia Garcia MD. Orderin Felix Harvey MD
[2024-06-15 19:55] LABS: Troponin I 14 ng/L (<or=76)
--- NOTE | 2024-06-15 20:25 | DI.VRAD_ITS ---
PROCEDURE INFORMATION: Exam: CTA Head Without And With Contrast, Arteriography Exam date and time: 06/15/2024 6:14 PM Age: 78 years old Clinical indication: Stroke-like symptoms; Altered mental status/memory loss; Additional info: Confusion TECHNIQUE: Imaging protocol: Computed tomographic angiography of the head without and with contrast. Exam focused on the arteries. 3D rendering (Not supervised by radiologist): MIP and/or 3D reconstructed images were created by the technologist. Contrast material: OMNIPAQUE 350; Contrast volume: 70 ml; Contrast route: INTRAVENOUS (IV); Other technique: STROKE PROTOCOL was implemented. COMPARISON: CT NECK CHEST WO 08/07/2021 9:27 PM FINDINGS: ANTERIOR CIRCULATION: Right internal carotid artery: The right ICA petrous segment is unremarkable. Cavernous and supraclinoid segments demonstrate moderate calcific plaque without significant stenosis. Right middle cerebral artery: Unremarkable. No occlusion or significant stenosis. No aneurysm. Right anterior cerebral artery: Unremarkable. No occlusion or significant stenosis. No aneurysm. The anterior communicating artery is unremarkable. Left internal carotid artery: Petrous segment demonstrates mild calcific plaque without significant stenosis. Cavernous segment demonstrates moderate calcific plaque without significant stenosis. Supraclinoid segment demonstrates moderate calcific plaque without significant stenosis. Left middle cerebral artery: Unremarkable. No occlusion or significant stenosis. No aneurysm. Left anterior cerebral artery: Left A1 segment is dominant. No occlusion or significant stenosis. No aneurysm. POSTERIOR CIRCULATION: Right vertebral artery: Short segment moderate mixed plaque in the proximal V4 segment producing moderate 50-60% stenosis. No occlusion. No aneurysm. Left vertebral artery: Atherosclerotic contour irregularity mild-moderate mixed plaque in the distal V3 to proximal V4 segment producing short segment moderate-severe 70% stenosis. No occlusion. No aneurysm. Basilar artery: Mild atherosclerotic contour irregularity. No occlusion or significant stenosis. No aneurysm. Right posterior cerebral artery: Unremarkable. No occlusion or significant stenosis. No aneurysm. Left posterior cerebral artery: Atherosclerotic contour irregularity with moderate 60-70% P1 segment stenosis. Normal symmetrical downstream flow preserved. No aneurysm. Other arteries: Moderate calcific atherosclerosis. Veins: The dural venous sinuses and major cortical veins enhance appropriately without evidence of thrombosis. Right dominant venous drainage. HEAD: Brain: Mild generalized cerebral/cerebellar atrophy. Mild periventricular bilateral white matter hypodensities which are nonspecific but most commonly associated with chronic microvascular ischemia in this age group. The IACs are grossly normal. No extra-axial fluid collections. No evidence of acute intracranial hemorrhage. Cerebral/cerebellar rossi-white matter differentiation is well maintained. No CT evidence of large territory acute or subacute intracranial ischemia/infarct. 7 mm hypodensity in the left posterior subinsular distribution consistent with chronic or subacute lacunar infarct. No associated mass effect or hemorrhage. No intracranial mass lesions. No midline shift or herniation. No enhancing brain lesions or vascular malformations are identified. Cerebral ventricles: Mild compensatory ventriculomegaly secondary to central atrophy. Pituitary gland and sella: The sella is grossly normal. Bones: No acute osseous findings. Orbital cavities: No acute intraorbital findings. Prior bilateral ocular cataract surgery. Paranasal sinuses: Visualized paranasal sinuses are clear. Mastoid air cells: Visualized mastoid air cells are clear. Soft tissues: No acute soft tissue findings. Other findings: No asymmetric vascular hyperdensities suggestive of thrombosis are identified. IMPRESSION: 1. No large vessel occlusions. 2. 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 3. Moderate 60-70% stenosis in the left CASH CONTROLLER P1 segment. 4. Moderate 50-60% stenosis in the right vertebral artery proximal V4 segment. 5. 7 mm hypodensity in the left posterior subinsular distribution could be chronic or late subacute lacunar infarct. No hemorrhage or mass effect. 6. No intracranial hemorrhage or mass effect. 7. These findings initiated a critical results reporting process. An addendum will be issued at the time of clinician notification. ASSESSMENT: ASPECTS ([place] Stroke Program Early CT Score) is 9. PROCEDURE INFORMATION: Exam: CTA Neck Without And With Contrast Exam date and time: 06/15/2024 6:14 PM Age: 78 years old Clinical indication: Stroke-like symptoms; Altered mental status/memory loss; Additional info: Confusion TECHNIQUE: Imaging protocol: Computed tomographic angiography of the neck without and with contrast. Exam focused on the cervical segments of the vasculature. 3D rendering (Not supervised by radiologist): MIP and/or 3D reconstructed images were created by the technologist. Contrast material: OMNIPAQUE 350; Contrast volume: 70 ml; Contrast route: INTRAVENOUS (IV); COMPARISON: CT NECK CHEST WO 08/07/2021 9:27 PM FINDINGS: Right common carotid artery: Mild tortuosity. Mild calcific plaque. No stenosis. No dissection or occlusion. Right internal carotid artery: Mild-moderate mixed calcific plaque in the left carotid bulb and proximal ICA. Moderate distal tortuosity with mild kinking but no significant stenosis. No dissection or occlusion. Right external carotid artery: Mild ostial calcific plaque. Mild tortuosity and kinking. No significant stenosis. No dissection or occlusion. Left common carotid artery: Mild tortuosity. No stenosis. No dissection or occlusion. Left internal carotid artery: Moderate calcific plaque in the left carotid bulb and proximal most ICA segment. Mild-moderate distal tortuosity. Moderate 50% stenosis in the proximal ICA segment. No dissection or occlusion. Left external carotid artery: Mild tortuosity. No stenosis. No dissection or occlusion. Right vertebral artery: Mild tortuosity and calcific plaque, otherwise normal cervical segment. No significant stenosis. No dissection or occlusion. Left vertebral artery: Anatomic variant origin of the left vertebral artery directly from the aortic arch. Ostial mixed plaque produces moderate 50% ostial stenosis. There is also tandem moderate stenosis of 60-70% about 1.5 cm from the ostium. No dissection or occlusion. Brachiocephalic artery: The brachiocephalic artery demonstrates mild calcific plaque without stenosis. Right subclavian artery: The right subclavian artery demonstrates mild calcific plaque without stenosis. Left subclavian artery: The left subclavian artery demonstrates mild calcific plaque without stenosis. Aorta: The visualized aortic arch demonstrates mild-moderate ectasia and calcific plaque without evidence of dissection or gross aneurysm. Thyroid: 11 mm low-density nodule in the right thyroid lobe which does not require further evaluation. Soft tissues: No significant soft tissue swelling or hematoma. Bones/joints: No acute osseous abnormalities are identified. Chronic moderate superior endplate compression deformity C7. Lungs: Mild to moderate right and mild left apical pleuroparenchymal scarring. Granulomatous calcification in the right upper lobe. IMPRESSION: 1. No evidence of arterial occlusion, dissection, or aneurysm/pseudoaneurysm. 2. Moderate 50% ostial stenosis of the left vertebral artery, which has a variant origin directly from the aortic arch. There is also a short segment tandem moderate stenosis of 60-70% about 1.5 cm downstream from this. 3. Additional nonemergent findings detailed above. REFERENCES: NASCET CRITERIA. The degree of stenosis in the cervical segment of the internal carotid artery is based on NASCET criteria. Normal is no stenosis. Mild is less than 50% stenosis. Moderate is 50-69% stenosis. Severe is 70% to 99% stenosis. Total occlusion is no detectable patent lumen. Dictated and Authenticated by: Darron Henderson MD. Orderin Felix Harvey MD
--- NOTE | 2024-06-15 20:28 | DI.VRAD_ITS ---
Addendum created by Darron Henderson MD on 06/15/2024 8:28:06 PM EST: Addendum: THIS REPORT CONTAINS FINDINGS THAT MAY BE CRITICAL TO PATIENT CARE. The findings were verbally communicated via telephone conference with MILI CHAPIN at 8:27 PM EST on 06/15/2024. The findings were acknowledged and understood. Initial report created on 06/15/2024 8:25:20 PM EST: PROCEDURE INFORMATION: Exam: CTA Head Without And With Contrast, Arteriography Exam date and time: 06/15/2024 6:14 PM Age: 78 years old Clinical indication: Stroke-like symptoms; Altered mental status/memory loss; Additional info: Confusion TECHNIQUE: Imaging protocol: Computed tomographic angiography of the head without and with contrast. Exam focused on the arteries. 3D rendering (Not supervised by radiologist): MIP and/or 3D reconstructed images were created by the technologist. Contrast material: OMNIPAQUE 350; Contrast volume: 70 ml; Contrast route: INTRAVENOUS (IV); Other technique: STROKE PROTOCOL was implemented. COMPARISON: CT NECK CHEST WO 08/07/2021 9:27 PM FINDINGS: ANTERIOR CIRCULATION: Right internal carotid artery: The right ICA petrous segment is unremarkable. Cavernous and supraclinoid segments demonstrate moderate calcific plaque without significant stenosis. Right middle cerebral artery: Unremarkable. No occlusion or significant stenosis. No aneurysm. Right anterior cerebral artery: Unremarkable. No occlusion or significant stenosis. No aneurysm. The anterior communicating artery is unremarkable. Left internal carotid artery: Petrous segment demonstrates mild calcific plaque without significant stenosis. Cavernous segment demonstrates moderate calcific plaque without significant stenosis. Supraclinoid segment demonstrates moderate calcific plaque without significant stenosis. Left middle cerebral artery: Unremarkable. No occlusion or significant stenosis. No aneurysm. Left anterior cerebral artery: Left A1 segment is dominant. No occlusion or significant stenosis. No aneurysm. POSTERIOR CIRCULATION: Right vertebral artery: Short segment moderate mixed plaque in the proximal V4 segment producing moderate 50-60% stenosis. No occlusion. No aneurysm. Left vertebral artery: Atherosclerotic contour irregularity mild-moderate mixed plaque in the distal V3 to proximal V4 segment producing short segment moderate-severe 70% stenosis. No occlusion. No aneurysm. Basilar artery: Mild atherosclerotic contour irregularity. No occlusion or significant stenosis. No aneurysm. Right posterior cerebral artery: Unremarkable. No occlusion or significant stenosis. No aneurysm. Left posterior cerebral artery: Atherosclerotic contour irregularity with moderate 60-70% P1 segment stenosis. Normal symmetrical downstream flow preserved. No aneurysm. Other arteries: Moderate calcific atherosclerosis. Veins: The dural venous sinuses and major cortical veins enhance appropriately without evidence of thrombosis. Right dominant venous drainage. HEAD: Brain: Mild generalized cerebral/cerebellar atrophy. Mild periventricular bilateral white matter hypodensities which are nonspecific but most commonly associated with chronic microvascular ischemia in this age group. The IACs are grossly normal. No extra-axial fluid collections. No evidence of acute intracranial hemorrhage. Cerebral/cerebellar rossi-white matter differentiation is well maintained. No CT evidence of large territory acute or subacute intracranial ischemia/infarct. 7 mm hypodensity in the left posterior subinsular distribution consistent with chronic or subacute lacunar infarct. No associated mass effect or hemorrhage. No intracranial mass lesions. No midline shift or herniation. No enhancing brain lesions or vascular malformations are identified. Cerebral ventricles: Mild compensatory ventriculomegaly secondary to central atrophy. Pituitary gland and sella: The sella is grossly normal. Bones: No acute osseous findings. Orbital cavities: No acute intraorbital findings. Prior bilateral ocular cataract surgery. Paranasal sinuses: Visualized paranasal sinuses are clear. Mastoid air cells: Visualized mastoid air cells are clear. Soft tissues: No acute soft tissue findings. Other findings: No asymmetric vascular hyperdensities suggestive of thrombosis are identified. IMPRESSION: 1. No large vessel occlusions. 2. 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 3. Moderate 60-70% stenosis in the left SEIS[employer] ENGINEER P1 segment. 4. Moderate 50-60% stenosis in the right vertebral artery proximal V4 segment. 5. 7 mm hypodensity in the left posterior subinsular distribution could be chronic or late subacute lacunar infarct. No hemorrhage or mass effect. 6. No intracranial hemorrhage or mass effect. 7. These findings initiated a critical results reporting process. An addendum will be issued at the time of clinician notification. ASSESSMENT: ASPECTS ([place] Stroke Program Early CT Score) is 9. PROCEDURE INFORMATION: Exam: CTA Neck Without And With Contrast Exam date and time: 06/15/2024 6:14 PM Age: 78 years old Clinical indication: Stroke-like symptoms; Altered mental status/memory loss; Additional info: Confusion TECHNIQUE: Imaging protocol: Computed tomographic angiography of the neck without and with contrast. Exam focused on the cervical segments of the vasculature. 3D rendering (Not supervised by radiologist): MIP and/or 3D reconstructed images were created by the technologist. Contrast material: OMNIPAQUE 350; Contrast volume: 70 ml; Contrast route: INTRAVENOUS (IV); COMPARISON: CT NECK CHEST WO 08/07/2021 9:27 PM FINDINGS: Right common carotid artery: Mild tortuosity. Mild calcific plaque. No stenosis. No dissection or occlusion. Right internal carotid artery: Mild-moderate mixed calcific plaque in the left carotid bulb and proximal ICA. Moderate distal tortuosity with mild kinking but no significant stenosis. No dissection or occlusion. Right external carotid artery: Mild ostial calcific plaque. Mild tortuosity and kinking. No significant stenosis. No dissection or occlusion. Left common carotid artery: Mild tortuosity. No stenosis. No dissection or occlusion. Left internal carotid artery: Moderate calcific plaque in the left carotid bulb and proximal most ICA segment. Mild-moderate distal tortuosity. Moderate 50% stenosis in the proximal ICA segment. No dissection or occlusion. Left external carotid artery: Mild tortuosity. No stenosis. No dissection or occlusion. Right vertebral artery: Mild tortuosity and calcific plaque, otherwise normal cervical segment. No significant stenosis. No dissection or occlusion. Left vertebral artery: Anatomic variant origin of the left vertebral artery directly from the aortic arch. Ostial mixed plaque produces moderate 50% ostial stenosis. There is also tandem moderate stenosis of 60-70% about 1.5 cm from the ostium. No dissection or occlusion. Brachiocephalic artery: The brachiocephalic artery demonstrates mild calcific plaque without stenosis. Right subclavian artery: The right subclavian artery demonstrates mild calcific plaque without stenosis. Left subclavian artery: The left subclavian artery demonstrates mild calcific plaque without stenosis. Aorta: The visualized aortic arch demonstrates mild-moderate ectasia and calcific plaque without evidence of dissection or gross aneurysm. Thyroid: 11 mm low-density nodule in the right thyroid lobe which does not require further evaluation. Soft tissues: No significant soft tissue swelling or hematoma. Bones/joints: No acute osseous abnormalities are identified. Chronic moderate superior endplate compression deformity C7. Lungs: Mild to moderate right and mild left apical pleuroparenchymal scarring. Granulomatous calcification in the right upper lobe. IMPRESSION: 1. No evidence of arterial occlusion, dissection, or aneurysm/pseudoaneurysm. 2. Moderate 50% ostial stenosis of the left vertebral artery, which has a variant origin directly from the aortic arch. There is also a short segment tandem moderate stenosis of 60-70% about 1.5 cm downstream from this. 3. Additional nonemergent findings detailed above. REFERENCES: NASCET CRITERIA. The degree of stenosis in the cervical segment of the internal carotid artery is based on NASCET criteria. Normal is no stenosis. Mild is less than 50% stenosis. Moderate is 50-69% stenosis. Severe is 70% to 99% stenosis. Total occlusion is no detectable patent lumen. Dictated and Authenticated by: Darron Henderson MD. Orderin Felix Harvey MD
[2024-06-15] MEDS: Oseltamivir 75 MG CAP PO (21:18)
[2024-06-15] MEDS: Acetaminophen 325 MG TAB 650 MG PO (21:19)
[2024-06-15] MEDS: Ibuprofen 600 MG TAB PO (22:20)
--- NOTE | 2024-06-15 22:21 | HPE_ITS ---
Date of service: 06/15/24 Time of Service: 22:21 Assessment and Plan Assessment and plan (1) Encephalopathy due to influenza A virus: Start date: 06/15/24 Status: Acute Assessment and plan: This is a 78-year-old gentleman presenting with recent URI symptoms and confusion found to have influenza A. He was initiated on Tamiflu which will be continued. Blood culture will be performed but urine was clean. Supportive care and encourage oral fluids with no IV hydration for now. He does have significant cerebrovascular disease especially on the left with possible subacute posterior left CVA with further evaluation of this problem which may be contributing to his confusion. There are no acute focalizing neurological findings and teleneurology was not consulted and will not be consulted unless changes. Patient was initiated on aspirin. Follow-up echocardiogram with bubble study and MRI of the brain. He is a full code. (2) Influenza A H1N1 infection: Status: Acute Assessment and plan: Supportive care with Tamiflu initiated. (3) TIA (transient ischemic attack): Start date: 06/15/24 Status: Acute Assessment and plan: Stroke workup as above. Monitor for change in neurological status with teleneurology if changes. Patient will be started on high-dose statin. (4) CVA (cerebral vascular accident): Status: Suspected Assessment and plan: MRI of the brain. Initiated aspirin. (5) Hypomagnesemia: Start date: 06/15/24 Status: Acute Assessment and plan: Replete with IV magnesium sulfate and follow-up lab. History of Present Illness History of Present Illness Chief Complaint: Confusion with upper respiratory symptoms. 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 He presented to the ED with his son who lives with him along with his . He is on no medical therapy. He was found to have influenza A with chest x-ray showing no focal infiltrates. Did have a fever and did feel somewhat better with initiation of Tamiflu. He was still mildly confused when I interviewed him. He denies any chest pain or GI symptoms. He did have imaging of his head and neck because of his confusion that was found to have very significant stenosis of his left cerebral circulation and a possible subacute left posterior subinsular stroke. He did not have any focal neurological symptoms and teleneurology was not consulted. He was outside any window of aggressive treatment but was initiated on aspirin with continue cardiac monitoring as we treated his infectious encephalopathy most likely secondary to influenza A. Urine was negative and blood cultures were performed but patient was not initiated on antibiotics. He will be treated for influenza A with supportive care though IV hydration was not necessary at this time. Further evaluation for possible recent stroke or TIA will be completed with echocardiogram with bubble studies and MRI of the brain. He is a full code. Review of Systems Narrative: 13 point review of systems otherwise unrevealing/unobtainable or stable per son. [facility] All Active Problems (Updated 06/15/24 @ 22:51 by Cesar Coyle) Hypomagnesemia (Acute) Influenza A H1N1 infection (Acute) TIA (transient ischemic attack) (Acute) Encephalopathy due to influenza A virus (Acute) Pain, foot (Acute) Ingrowing nail (Acute) Corns and callosities (Acute) Medical History Fracture Multiple, cervical and lumbar. S/p fall in early . Social History Smoking/Tobacco Use Status: Never Smoking risk assessment performed?: Yes Alcohol Intake: never Drug use: Never Substance use type: does not use Housing: apartment Do you feel safe at home: Yes Do you feel safe in your relationship?: Yes Meds Allergies and Home Medications Allergies Allergy/AdvReac Type Severity Reaction Status Date / Time No Known Allergies Allergy Verified 06/15/24 17:32 Home Medications ?Medication ?Instructions ?Recorded ?Confirmed ?Type Unknown [No Known Home Meds] 08/07/21 06/15/24 History Exam Narrative Exam Narrative: General: Patient appears appropriate for age, mildly confused and hard of hearing during interview with discomfort from fever. He has a mild cough during interview. He is alert and oriented at least to person and place. HEENT: Normocephalic, eyes with pupils equal and reactive to light symmetrically, extraocular movement intact and sclera anicteric. Oropharynx with moist mucosa. Neck: Supple without JVD. Left carotid bruit auscultated. Back: Normal posture, without CVA tenderness. Lungs: Bronchovesicular breath sound diffusely with no focalizing rales or rhonchi. Normal expiratory phase but no expiratory wheeze. Fair aeration. Heart: Regular rate and rhythm with no appreciable murmur or gallop. Distant heart sounds. Abdomen: Normal contour, soft and nontender to palpation without palpable hepatosplenomegaly. Bowel sounds positive all quadrants. No guarding or rebound. Genitalia/rectal: Exam deferred. Extremities: No clubbing, cyanosis or pitting edema. Good capillary refill. Skin: Darkly tanned, otherwise normal color, hot and moist with patient having mild sweats with fever. Neuro: Cranial nerves II through XII grossly intact, no focalized motor deficits. No tremor. Psych: Patient has mild confusion but does not appear depressed or anxious. No abnormal thought processes. Remote memory intact and recent memory less intact. He does know that he lives with his and son. Results Imaging Imaging Studies: Exam: XR Chest Exam date and time: 06/15/2024 6:27 PM Age: 78 years old Clinical indication: Cough TECHNIQUE: Imaging protocol: Radiologic exam of the chest. Views: 2 views. COMPARISON: CT NECK CHEST WO 08/07/2021 9:27 PM FINDINGS: Lungs: Lungs are symmetrically hyperinflated. No focal consolidation or evidence of pulmonary edema. Pleural spaces: No pleural effusion. No pneumothorax. Heart/Mediastinum: Cardiomediastinal contours are at the upper limits of normal for size. Vasculature: Descending thoracic aorta is tortuous in course. There are vascular calcifications of the aortic arch. Bones/joints: Partially visualized upper lumbar vertebral body compression deformity of uncertain chronicity, incompletely evaluated on this exam. IMPRESSION: 1. No focal consolidation. 2. Hyperinflation. 3. Age-indeterminate upper lumbar vertebral body compression deformity incompletely evaluated on this exam. Correlate clinically. Addendum created by Darron Henderson MD on 06/15/2024 8:28:06 PM EST: Addendum: THIS REPORT CONTAINS FINDINGS THAT MAY BE CRITICAL TO PATIENT CARE. The findings were verbally communicated via telephone conference with MILI CHAPIN at 8:27 PM EST on 06/15/2024. The findings were acknowledged and understood. Initial report created on 06/15/2024 8:25:20 PM EST: PROCEDURE INFORMATION: Exam: CTA Head Without And With Contrast, Arteriography Exam date and time: 06/15/2024 6:14 PM Age: 78 years old Clinical indication: Stroke-like symptoms; Altered mental status/memory loss; Additional info: Confusion COMPARISON: CT NECK CHEST WO 08/07/2021 9:27 PM FINDINGS: ANTERIOR CIRCULATION: Right internal carotid artery: The right ICA petrous segment is unremarkable. Cavernous and supraclinoid segments demonstrate moderate calcific plaque without significant stenosis. Right middle cerebral artery: Unremarkable. No occlusion or significant stenosis. No aneurysm. Right anterior cerebral artery: Unremarkable. No occlusion or significant stenosis. No aneurysm. The anterior communicating artery is unremarkable. Left internal carotid artery: Petrous segment demonstrates mild calcific plaque without significant stenosis. Cavernous segment demonstrates moderate calcific plaque without significant stenosis. Supraclinoid segment demonstrates moderate calcific plaque without significant stenosis. Left middle cerebral artery: Unremarkable. No occlusion or significant stenosis. No aneurysm. Left anterior cerebral artery: Left A1 segment is dominant. No occlusion or significant stenosis. No aneurysm. POSTERIOR CIRCULATION: Right vertebral artery: Short segment moderate mixed plaque in the proximal V4 segment producing moderate 50-60% stenosis. No occlusion. No aneurysm. Left vertebral artery: Atherosclerotic contour irregularity mild-moderate mixed plaque in the distal V3 to proximal V4 segment producing short segment moderate-severe 70% stenosis. No occlusion. No aneurysm. Basilar artery: Mild atherosclerotic contour irregularity. No occlusion or significant stenosis. No aneurysm. Right posterior cerebral artery: Unremarkable. No occlusion or significant stenosis. No aneurysm. Left posterior cerebral artery: Atherosclerotic contour irregularity with moderate 60-70% P1 segment stenosis. Normal symmetrical downstream flow preserved. No aneurysm. Other arteries: Moderate calcific atherosclerosis. Veins: The dural venous sinuses and major cortical veins enhance appropriately without evidence of thrombosis. Right dominant venous drainage. HEAD: Brain: Mild generalized cerebral/cerebellar atrophy. Mild periventricular bilateral white matter hypodensities which are nonspecific but most commonly associated with chronic microvascular ischemia in this age group. The IACs are grossly normal. No extra-axial fluid collections. No evidence of acute intracranial hemorrhage. Cerebral/cerebellar rossi-white matter differentiation is well maintained. No CT evidence of large territory acute or subacute intracranial ischemia/infarct. 7 mm hypodensity in the left posterior subinsular distribution consistent with chronic or subacute lacunar infarct. No associated mass effect or hemorrhage. No intracranial mass lesions. No midline shift or herniation. No enhancing brain lesions or vascular malformations are identified. Cerebral ventricles: Mild compensatory ventriculomegaly secondary to central atrophy. Pituitary gland and sella: The sella is grossly normal. Bones: No acute osseous findings. Orbital cavities: No acute intraorbital findings. Prior bilateral ocular cataract surgery. Paranasal sinuses: Visualized paranasal sinuses are clear. Mastoid air cells: Visualized mastoid air cells are clear. Soft tissues: No acute soft tissue findings. Other findings: No asymmetric vascular hyperdensities suggestive of thrombosis are identified. IMPRESSION: 1. No large vessel occlusions. 2. 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 3. Moderate 60-70% stenosis in the left [employer]ING [employer]ACHINE [employer] P1 segment. 4. Moderate 50-60% stenosis in the right vertebral artery proximal V4 segment. 5. 7 mm hypodensity in the left posterior subinsular distribution could be chronic or late subacute lacunar infarct. No hemorrhage or mass effect. 6. No intracranial hemorrhage or mass effect. 7. These findings initiated a critical results reporting process. An addendum will be issued at the time of clinician notification. ASSESSMENT: ASPECTS ([place] Stroke Program Early CT Score) is 9. PROCEDURE INFORMATION: Exam: CTA Neck Without And With Contrast Exam date and time: 06/15/2024 6:14 PM Age: 78 years old Clinical indication: Stroke-like symptoms; Altered mental status/memory loss; Additional info: Confusion COMPARISON: CT NECK CHEST WO 08/07/2021 9:27 PM FINDINGS: Right common carotid artery: Mild tortuosity. Mild calcific plaque. No stenosis. No dissection or occlusion. Right internal carotid artery: Mild-moderate mixed calcific plaque in the left carotid bulb and proximal ICA. Moderate distal tortuosity with mild kinking but no significant stenosis. No dissection or occlusion. Right external carotid artery: Mild ostial calcific plaque. Mild tortuosity and kinking. No significant stenosis. No dissection or occlusion. Left common carotid artery: Mild tortuosity. No stenosis. No dissection or occlusion. Left internal carotid artery: Moderate calcific plaque in the left carotid bulb and proximal most ICA segment. Mild-moderate distal tortuosity. Moderate 50% stenosis in the proximal ICA segment. No dissection or occlusion. Left external carotid artery: Mild tortuosity. No stenosis. No dissection or occlusion. Right vertebral artery: Mild tortuosity and calcific plaque, otherwise normal cervical segment. No significant stenosis. No dissection or occlusion. Left vertebral artery: Anatomic variant origin of the left vertebral artery directly from the aortic arch. Ostial mixed plaque produces moderate 50% ostial stenosis. There is also tandem moderate stenosis of 60-70% about 1.5 cm from the ostium. No dissection or occlusion. Brachiocephalic artery: The brachiocephalic artery demonstrates mild calcific plaque without stenosis. Right subclavian artery: The right subclavian artery demonstrates mild calcific plaque without stenosis. Left subclavian artery: The left subclavian artery demonstrates mild calcific plaque without stenosis. Aorta: The visualized aortic arch demonstrates mild-moderate ectasia and calcific plaque without evidence of dissection or gross aneurysm. Thyroid: 11 mm low-density nodule in the right thyroid lobe which does not require further evaluation. Soft tissues: No significant soft tissue swelling or hematoma. Bones/joints: No acute osseous abnormalities are identified. Chronic moderate superior endplate compression deformity C7. Lungs: Mild to moderate right and mild left apical pleuroparenchymal scarring. Granulomatous calcification in the right upper lobe. IMPRESSION: 1. No evidence of arterial occlusion, dissection, or aneurysm/pseudoaneurysm. 2. Moderate 50% ostial stenosis of the left vertebral artery, which has a variant origin directly from the aortic arch. There is also a short segment tandem moderate stenosis of 60-70% about 1.5 cm downstream from this. 3. Additional nonemergent findings detailed above. Labs 06/16/24 06:38 06/15/24 17:48 Labs: Laboratory Results - last 24 hr 06/15/24 06/15/24 06/15/24 17:48 18:40 18:45 WBC 8.01 RBC 4.92 Hgb 13.5 Hct 42.8 MCV 87 MCH 27.4 MCHC 31.5 L RDW 15.5 H Plt Count 197 MPV 8.8 Immature Gran % 0.2 Neutrophils % 91.5 Lymphocytes % 3.6 Monocytes % 4.0 Eosinophils % 0.5 Basophils % 0.2 Nucleated RBC % 0.0 Absolute Neutrophils 7.32 H Absolute Lymphocytes 0.29 L Absolute Monocytes 0.32 Absolute Eosinophils 0.04 Absolute Basophils 0.02 Sodium 139 Potassium 4.4 Chloride 102 Carbon Dioxide 30.4 Anion Gap 6.6 BUN 12 Creatinine 1.0 Est GFR (CKD-EPI 2020) 77.52 Glucose 109 H Calcium 8.5 Magnesium 1.7 L Total Bilirubin 0.42 AST 15 ALT 22 Alkaline Phosphatase 95 Troponin I 13 Total Protein 6.8 Albumin 3.5 Urine Color Yellow Urine Clarity Clear Urine pH 5.5 Ur Specific [place] 1.015 Urine Protein Negative Urine Ketones Negative Urine Blood Negative Urine Nitrite Negative Urine Bilirubin Negative Urine Urobilinogen 0.2 Ur Leukocyte Esterase Negative Urine Glucose Negative COVID-19 Source NASOPHARYNX SARS-CoV-2 (PCR) Negative Influenza Type A (PCR) Positive A Influenza Type B (PCR) Negative RSV (PCR) Negative 06/15/24 06/15/24 19:24 20:44 WBC RBC Hgb Hct MCV MCH MCHC RDW Plt Count MPV Immature Gran % Neutrophils % Lymphocytes % Monocytes % Eosinophils % Basophils % Nucleated RBC % Absolute Neutrophils Absolute Lymphocytes Absolute Monocytes Absolute Eosinophils Absolute Basophils Sodium Potassium Chloride Carbon Dioxide Anion Gap BUN Creatinine Est GFR (CKD-EPI 2020) Glucose Calcium Magnesium Total Bilirubin AST ALT Alkaline Phosphatase Troponin I 14 Cancelled Total Protein Albumin Urine Color Urine Clarity Urine pH Ur Specific [place] Urine Protein Urine Ketones Urine Blood Urine Nitrite Urine Bilirubin Urine Urobilinogen Ur Leukocyte Esterase Urine Glucose COVID-19 Source SARS-CoV-2 (PCR) Influenza Type A (PCR) Influenza Type B (PCR) RSV (PCR) Last Vital Signs Temp 38.7 C H 06/15/24 22:01 Pulse 56 L 06/15/24 22:01 Resp 20 06/15/24 22:01 BP 136/51 L 06/15/24 22:01 Pulse Ox 95 06/15/24 22:01 Time Spent Time spent with Patient: >75 minutes Time was spent: preparing to see the patient(eg.review tests), obtaining and/or reviewing separately otained hiistory, ordering medications,tests, procedures, indepentently interpreting results and care coordination
[2024-06-15] MEDS: Heparin 5,000 UNITS/ML VIAL 5000 UNITS SC (23:12)
[2024-06-15] MEDS: MAGNESIUM SULFATE 2 GM/50 ML BAG IV_INF (23:13)
[2024-06-15] MEDS: Aspirin 325 MG TAB PO (23:13)
[2024-06-16] VITALS (287 sets, daily range): BP systolic 109–185; BP diastolic 33–73; PULSE 40–61; RESP 10–24; TEMP 37.2–37.8; O2SAT 88–98
[2024-06-16] MEDS: Heparin 5,000 UNITS/ML VIAL 5000 UNITS SC ×2 (06:16→22:20)
[2024-06-16] MEDS: Acetaminophen 325 MG TAB PO (06:17)
[2024-06-16 06:44] LABS: HCT 40.7 % (40.0-50.0); MCH 27.7 pg (27.0-33.0); MCHC 31.9 % (32.0-36.0); MCV 87 fL (80-95); MPV 8.9 fL (8.0-11.0); Platelet Count 167 10^3/uL (130-400); RDW 15.8 % (11.8-14.1); RDW-SD 49.2 fL; WBC 6.24 10^3/uL (4.4-10.8)
[2024-06-16 07:55] LABS: ALT 21 U/L (16-63); AST 14 U/L (15-37); Alkaline Phosphatase 81 U/L (46-116); Anion Gap 5.4 mmol/L (3-11); BUN 15 mg/dL (7-18); CO2 30.6 mmol/L (21.0-32.0); Calcium 8.3 mg/dL (8.5-10.1); Chloride 104 mmol/L (98-107); Estimated GFR 77.52 (mL/min/1.73m2); Glucose 91 mg/dL (74-106); Magnesium 2.3 mg/dL (1.8-2.4); Potassium 4.1 mmol/L (3.5-5.1); Sodium 140 mmol/L (136-145); Total Protein 6.1 g/dL (6.4-8.2)
[2024-06-16] MEDS: Aspirin 81 MG CHEW PO (09:07)
[2024-06-16] MEDS: Oseltamivir 75 MG CAP PO ×2 (09:08→20:10)
[2024-06-16] MEDS: Normal Saline Flush 10 ML SYR IVP ×3 (16:24→20:11)
--- NOTE | 2024-06-16 16:31 | W.PM.PROGNOT ---
Date of Service Date of service: 06/16/24 Time of Service: 16:32 Assessment and Plan Assessment and plan (1) Encephalopathy due to influenza A virus: Start date: 06/15/24 Status: Acute Assessment and plan: -Presented with recent URI symptoms and confusion found to have influenza A. -He was initiated on Tamiflu which will be continued. -Blood cultures ordered, UA negative. -Continue supportive care and encourage oral fluids with no IV hydration for now. -He does have significant cerebrovascular disease especially on the left with possible subacute posterior left CVA with further evaluation of this problem which may be contributing to his confusion. -There are no acute localizing neurological findings and teleneurology was not consulted and will not be consulted unless changes. -Patient was initiated on aspirin. -Follow-up echocardiogram with bubble study and MRI of the brain. He is a full code. (2) Influenza A H1N1 infection: Status: Acute Assessment and plan: -Supportive care with Tamiflu initiated. (3) TIA (transient ischemic attack): Start date: 06/15/24 Status: Acute Assessment and plan: -Stroke workup as above. -Monitor for change in neurological status with teleneurology if changes. -Patient will be started on high-dose statin. (4) CVA (cerebral vascular accident): Status: Suspected Assessment and plan: MRI of the brain. Initiated aspirin. (5) Hypomagnesemia: Start date: 06/15/24 Status: Acute Assessment and plan: Replete with IV magnesium sulfate and follow-up lab. Subjective Subjective Interval history since last seen: Patient seen upon [facility] to [facility] at around 1600. He states that he is far less confused and has more energy as compared to when he presented the emergency department last night. This time he has no complaints or concerns at this time. Exam Narrative Exam Narrative: Elderly gentleman laying in bed in no acute distress, awake, alert, oriented to person and place, heart regular rate rhythm, lungs clear to auscultation bilaterally, abdomen soft, nontender, nondistended, cranial nerves II through XII intact, normal sensation and strength in bilateral upper and lower extremities Objective Last Vital Signs Temp 100.0 F H 06/16/24 16:06 Pulse 50 L 06/16/24 16:06 Resp 16 06/16/24 16:06 BP 171/67 H 06/16/24 16:06 Pulse Ox 94 06/16/24 16:06 Laboratory Results - last 24 hr 06/15/24 06/15/24 06/15/24 17:48 18:40 18:45 WBC 8.01 RBC 4.92 Hgb 13.5 Hct 42.8 MCV 87 MCH 27.4 MCHC 31.5 L RDW 15.5 H Plt Count 197 MPV 8.8 Immature Gran % 0.2 Neutrophils % 91.5 Lymphocytes % 3.6 Monocytes % 4.0 Eosinophils % 0.5 Basophils % 0.2 Nucleated RBC % 0.0 Absolute Neutrophils 7.32 H Absolute Lymphocytes 0.29 L Absolute Monocytes 0.32 Absolute Eosinophils 0.04 Absolute Basophils 0.02 Sodium 139 Potassium 4.4 Chloride 102 Carbon Dioxide 30.4 Anion Gap 6.6 BUN 12 Creatinine 1.0 Est GFR (CKD-EPI 2020) 77.52 Glucose 109 H Calcium 8.5 Magnesium 1.7 L Total Bilirubin 0.42 AST 15 ALT 22 Alkaline Phosphatase 95 Troponin I 13 Total Protein 6.8 Albumin 3.5 Urine Color Yellow Urine Clarity Clear Urine pH 5.5 Ur Specific [place] 1.015 Urine Protein Negative Urine Ketones Negative Urine Blood Negative Urine Nitrite Negative Urine Bilirubin Negative Urine Urobilinogen 0.2 Ur Leukocyte Esterase Negative Urine Glucose Negative COVID-19 Source NASOPHARYNX SARS-CoV-2 (PCR) Negative Influenza Type A (PCR) Positive A Influenza Type B (PCR) Negative RSV (PCR) Negative 06/15/24 06/15/24 06/16/24 19:24 20:44 06:08 WBC Cancelled RBC Cancelled Hgb Cancelled Hct Cancelled MCV Cancelled MCH Cancelled MCHC Cancelled RDW Cancelled Plt Count Cancelled MPV Cancelled Immature Gran % Neutrophils % Lymphocytes % Monocytes % Eosinophils % Basophils % Nucleated RBC % Absolute Neutrophils Absolute Lymphocytes Absolute Monocytes Absolute Eosinophils Absolute Basophils Sodium 140 Potassium 4.1 Chloride 104 Carbon Dioxide 30.6 Anion Gap 5.4 BUN 15 Creatinine 1.0 Est GFR (CKD-EPI 2020) 77.52 Glucose 91 Calcium 8.3 L Magnesium 2.3 Total Bilirubin 0.40 AST 14 L ALT 21 Alkaline Phosphatase 81 Troponin I 14 Cancelled Total Protein 6.1 L Albumin 3.0 L Urine Color Urine Clarity Urine pH Ur Specific [place] Urine Protein Urine Ketones Urine Blood Urine Nitrite Urine Bilirubin Urine Urobilinogen Ur Leukocyte Esterase Urine Glucose COVID-19 Source SARS-CoV-2 (PCR) Influenza Type A (PCR) Influenza Type B (PCR) RSV (PCR) 06/16/24 06:38 WBC 6.24 RBC 4.70 Hgb 13.0 L Hct 40.7 MCV 87 MCH 27.7 MCHC 31.9 L RDW 15.8 H Plt Count 167 MPV 8.9 Immature Gran % Neutrophils % Lymphocytes % Monocytes % Eosinophils % Basophils % Nucleated RBC % Absolute Neutrophils Absolute Lymphocytes Absolute Monocytes Absolute Eosinophils Absolute Basophils Sodium Potassium Chloride Carbon Dioxide Anion Gap BUN Creatinine Est GFR (CKD-EPI 2020) Glucose Calcium Magnesium Total Bilirubin AST ALT Alkaline Phosphatase Troponin I Total Protein Albumin Urine Color Urine Clarity Urine pH Ur Specific [place] Urine Protein Urine Ketones Urine Blood Urine Nitrite Urine Bilirubin Urine Urobilinogen Ur Leukocyte Esterase Urine Glucose COVID-19 Source SARS-CoV-2 (PCR) Influenza Type A (PCR) Influenza Type B (PCR) RSV (PCR) Time Spent with Patient Time Spent with Patient: >50 minutes Time was spent: preparing to see the patient(eg.review tests), obtaining and/or reviewing separately otained hiistory, ordering medications,tests, procedures, referring, communicating with other health health care assistant, indepentently interpreting results, counseling the patient and care coordination
--- NOTE | 2024-06-16 16:37 | W.PC.ACHO ---
Registration Status: Primary Language: Preferred Language: ED Information & Data Chief Complaint AMS/LOC 06/15/24 17:47 Other Complaint RespSymp 06/15/24 17:25 Triage Note baseline independent, and 06/15/24 17:25 functional, felt woozy this afternoon sat down had some water and appeared to perk up. son brought him in because he is confused. last well and oriented at 1630 reminded son of when he had covid Medical / Surgical History (Last Reviewed 06/15/24 @ 22:21 by Cesar Coyle) Fracture Most Recent Vital Signs Temperature 37.8 C H 06/16/24 16:06 Temperature Source Temporal Artery Scan 06/16/24 06:04 Pulse 50 L 06/16/24 16:06 Pulse Rhythm Regular 06/16/24 16:06 Pulse 52 L 06/16/24 14:40 Respiratory Rate 16 06/16/24 16:06 Respiratory Effort Normal 06/16/24 16:06 Respiratory Depth Normal 06/16/24 16:06 Respiratory Pattern Normal 06/16/24 16:06 Blood Pressure 171/67 H 06/16/24 16:06 Blood Pressure Mean 116 06/16/24 15:01 Pulse Oximetry 94 06/16/24 16:06 Oxygen Delivery Method Room Air 06/16/24 16:06 Oxygen Flow Rate 0 06/16/24 16:06 Pain Level 0 06/16/24 15:44 Allergies No Known Allergies Allergy (Verified 06/15/24 17:32) Precautions Isolation Standard precaution 06/15/24 17:33 Active Medications Generic Name Dose Route Start Last Admin Trade Name Freq PRN Reason Stop Dose Admin Acetaminophen 0 mg 06/16/24 01:00 06/16/24 06:17 Acetaminophen 325 Mg Tab PO 650 mg Q4H PRN PRN Administration Aspirin 81 mg 06/16/24 08:30 06/16/24 09:07 Aspirin 81 Mg Chew PO 81 mg DAILY LUCINA Administration Heparin Sodium (Porcine) 5,000 units 06/15/24 22:48 06/16/24 06:16 Heparin 5,000 Units/Ml Vial SC 5,000 units Q8H LUCINA Administration Oseltamivir Phosphate 75 mg 06/16/24 08:30 06/16/24 09:08 Oseltamivir 75 Mg Cap PO 75 mg BID LUCINA Administration Sodium Chloride 0 ml 06/15/24 20:00 06/16/24 16:24 Normal Saline Flush 10 Ml Syr IVP 10 ml BID LUCINA Administration IV IV Catheter Type [Left Forearm Saline Lock ] IV Catheter Type [Left Saline Lock Antecubital] IV Catheter Gauge [Left 18 Forearm] IV Catheter Gauge [Left 18 Antecubital] Diagnostics 06/16/24 06/16/24 06/16/24 Range/Units 15:58 06:38 06:08 WBC 6.24 Cancelled (4.4-10.8) 10^3/uL RBC 4.70 Cancelled (4.36-5.78) 10^6/uL Hgb 13.0 L Cancelled (13.5-17.5) g/dL Hct 40.7 Cancelled (40.0-50.0) % MCV 87 Cancelled (80-95) fL MCH 27.7 Cancelled (27.0-33.0) pg MCHC 31.9 L Cancelled (32.0-36.0) % RDW 15.8 H Cancelled (11.8-14.1) % Plt Count 167 Cancelled (130-400) 10^3/uL MPV 8.9 Cancelled (8.0-11.0) fL Immature Gran % % Neutrophils % % Lymphocytes % % Monocytes % % Eosinophils % % Basophils % % Nucleated RBC % (0.0-0.3) % Absolute Neutrophils (1.2-6.7) 10^3/uL Absolute Lymphocytes (1.2-3.4) 10^3/uL Absolute Monocytes (0.1-0.8) 10^3/uL Absolute Eosinophils (0.0-0.7) 10^3/uL Absolute Basophils (0.0-0.2) 10^3/uL Sodium 140 (136-145) mmol/L Potassium 4.1 (3.5-5.1) mmol/L Chloride 104 (98-107) mmol/L Carbon Dioxide 30.6 (21.0-32.0) mmol/L Anion Gap 5.4 (3-11) mmol/L BUN 15 (7-18) mg/dL Creatinine 1.0 (0.70-1.30) mg/dL Est GFR (CKD-EPI 2020) 77.52 (mL/min/1.73m2) Glucose 91 (74-106) mg/dL Calcium 8.3 L (8.5-10.1) mg/dL Magnesium 2.3 (1.8-2.4) mg/dL Total Bilirubin 0.40 (0.2-1.0) mg/dL AST 14 L (15-37) U/L ALT 21 (16-63) U/L Alkaline Phosphatase 81 (46-116) U/L Troponin I (<or=76) ng/L Total Protein 6.1 L (6.4-8.2) g/dL Albumin 3.0 L (3.4-5.0) g/dL TSH Pending Urine Color (Yellow) Urine Clarity (Clear) Urine pH (5-8) Ur Specific [place] (1.005-1.025) Urine Protein (Neg-Trace) mg/dL Urine Ketones (Negative) mg/dL Urine Blood (Negative) Urine Nitrite (Negative) Urine Bilirubin (Negative) Urine Urobilinogen (Up to 0.2) mg/dL Ur Leukocyte Esterase (Negative) Urine Glucose (Negative) mg/dL COVID-19 Source SARS-CoV-2 (PCR) (Negative) Influenza Type A (PCR) (Negative) Influenza Type B (PCR) (Negative) RSV (PCR) (Negative) 06/15/24 06/15/24 06/15/24 Range/Units 20:44 19:24 18:45 WBC (4.4-10.8) 10^3/uL RBC (4.36-5.78) 10^6/uL Hgb (13.5-17.5) g/dL Hct (40.0-50.0) % MCV (80-95) fL MCH (27.0-33.0) pg MCHC (32.0-36.0) % RDW (11.8-14.1) % Plt Count (130-400) 10^3/uL MPV (8.0-11.0) fL Immature Gran % % Neutrophils % % Lymphocytes % % Monocytes % % Eosinophils % % Basophils % % Nucleated RBC % (0.0-0.3) % Absolute Neutrophils (1.2-6.7) 10^3/uL Absolute Lymphocytes (1.2-3.4) 10^3/uL Absolute Monocytes (0.1-0.8) 10^3/uL Absolute Eosinophils (0.0-0.7) 10^3/uL Absolute Basophils (0.0-0.2) 10^3/uL Sodium (136-145) mmol/L Potassium (3.5-5.1) mmol/L Chloride (98-107) mmol/L Carbon Dioxide (21.0-32.0) mmol/L Anion Gap (3-11) mmol/L BUN (7-18) mg/dL Creatinine (0.70-1.30) mg/dL Est GFR (CKD-EPI 2020) (mL/min/1.73m2) Glucose (74-106) mg/dL Calcium (8.5-10.1) mg/dL Magnesium (1.8-2.4) mg/dL Total Bilirubin (0.2-1.0) mg/dL AST (15-37) U/L ALT (16-63) U/L Alkaline Phosphatase (46-116) U/L Troponin I Cancelled 14 (<or=76) ng/L Total Protein (6.4-8.2) g/dL Albumin (3.4-5.0) g/dL TSH Urine Color Yellow (Yellow) Urine Clarity Clear (Clear) Urine pH 5.5 (5-8) Ur Specific [place] 1.015 (1.005-1.025) Urine Protein Negative (Neg-Trace) mg/dL Urine Ketones Negative (Negative) mg/dL Urine Blood Negative (Negative) Urine Nitrite Negative (Negative) Urine Bilirubin Negative (Negative) Urine Urobilinogen 0.2 (Up to 0.2) mg/dL Ur Leukocyte Esterase Negative (Negative) Urine Glucose Negative (Negative) mg/dL COVID-19 Source SARS-CoV-2 (PCR) (Negative) Influenza Type A (PCR) (Negative) Influenza Type B (PCR) (Negative) RSV (PCR) (Negative) 06/15/24 06/15/24 Range/Units 18:40 17:48 WBC 8.01 (4.4-10.8) 10^3/uL RBC 4.92 (4.36-5.78) 10^6/uL Hgb 13.5 (13.5-17.5) g/dL Hct 42.8 (40.0-50.0) % MCV 87 (80-95) fL MCH 27.4 (27.0-33.0) pg MCHC 31.5 L (32.0-36.0) % RDW 15.5 H (11.8-14.1) % Plt Count 197 (130-400) 10^3/uL MPV 8.8 (8.0-11.0) fL Immature Gran % 0.2 % Neutrophils % 91.5 % Lymphocytes % 3.6 % Monocytes % 4.0 % Eosinophils % 0.5 % Basophils % 0.2 % Nucleated RBC % 0.0 (0.0-0.3) % Absolute Neutrophils 7.32 H (1.2-6.7) 10^3/uL Absolute Lymphocytes 0.29 L (1.2-3.4) 10^3/uL Absolute Monocytes 0.32 (0.1-0.8) 10^3/uL Absolute Eosinophils 0.04 (0.0-0.7) 10^3/uL Absolute Basophils 0.02 (0.0-0.2) 10^3/uL Sodium 139 (136-145) mmol/L Potassium 4.4 (3.5-5.1) mmol/L Chloride 102 (98-107) mmol/L Carbon Dioxide 30.4 (21.0-32.0) mmol/L Anion Gap 6.6 (3-11) mmol/L BUN 12 (7-18) mg/dL Creatinine 1.0 (0.70-1.30) mg/dL Est GFR (CKD-EPI 2020) 77.52 (mL/min/1.73m2) Glucose 109 H (74-106) mg/dL Calcium 8.5 (8.5-10.1) mg/dL Magnesium 1.7 L (1.8-2.4) mg/dL Total Bilirubin 0.42 (0.2-1.0) mg/dL AST 15 (15-37) U/L ALT 22 (16-63) U/L Alkaline Phosphatase 95 (46-116) U/L Troponin I 13 (<or=76) ng/L Total Protein 6.8 (6.4-8.2) g/dL Albumin 3.5 (3.4-5.0) g/dL TSH Urine Color (Yellow) Urine Clarity (Clear) Urine pH (5-8) Ur Specific [place] (1.005-1.025) Urine Protein (Neg-Trace) mg/dL Urine Ketones (Negative) mg/dL Urine Blood (Negative) Urine Nitrite (Negative) Urine Bilirubin (Negative) Urine Urobilinogen (Up to 0.2) mg/dL Ur Leukocyte Esterase (Negative) Urine Glucose (Negative) mg/dL COVID-19 Source NASOPHARYNX SARS-CoV-2 (PCR) Negative (Negative) Influenza Type A (PCR) Positive A (Negative) Influenza Type B (PCR) Negative (Negative) RSV (PCR) Negative (Negative) 06/16/24 08:35 Blood Culture - Pending Blood 06/16/24 08:25 Blood Culture - Pending Blood [id number] Documentation Fingerstick Glucose Start: 06/15/24 17:44 Freq: Status: Complete Protocol: Activity Type Activity Date Activity User E-sign Co-sign Detail Recorded Client Recorded Date Recorded By Document 06/15/24 17:43 BKG DAEMON(3) [id number] 06/15/24 17:44 BKG DAEMON(4) Fingerstick Glucose Start: 06/15/24 17:46 Freq: .Stat Status: Complete Protocol: Activity Type Activity Date Activity User E-sign Co-sign Detail Recorded Client Recorded Date Recorded By Document 06/15/24 17:43 CT [id number] 06/15/24 18:41 CT Intake and Output - 24 Hour Total 06/15/24 17:14 thru 06/16/24 16:06 Intake Total 560 Output Total 1050 Balance -490 Weight 72.575 kg Intake: IV 60 Oral 500 Output: Urine 1050 Other: Urine Appearance Clear # Voids 3 Falls Risk Assessment History of Falls No History 06/16/24 16:06 Contributing Factors Incontinence 06/16/24 16:06 Ambulatory Aids Independent 06/16/24 16:06 Tubes/Lines None 06/15/24 17:33 Gait Evaluation W/no contributing factors 06/15/24 17:33 Cognition No cognitive impairment 06/15/24 17:33 Fall Total Score 3 06/16/24 16:06 Level of Risk Standard/Low Risk 06/16/24 16:06 Problems (Last Reviewed 06/15/24 @ 22:21 by Cesar Coyle) Hypomagnesemia (Acute) Influenza A H1N1 infection (Acute) TIA (transient ischemic attack) (Acute) Encephalopathy due to influenza A virus (Acute) v v v v v v v v v Sending and/or Receiving Nurses: Please use comment section below to note any information pertinent to the patient hand-off not included above. Information / Comments: Report received from: Huma Langston ED RN
--- NOTE | 2024-06-16 16:55 | INITIAL_ITS ---
Date of service: 06/16/24 Time of Service: 16:55 Care Management Initial Assmt Initial Assessment Reason for Hospitalization: Encephalopathy, Influenza, CVA Functional Status/Living Situation Patient Presentation: Husam was sitting up in bed when CM met with him. He had pushed the button on his call pierce for the RN, and CM asked what he needed; he stated that he was trying to turn up the TV, and didn't know how the call pierce worked. He was pleasant, and appeared a bit confused. He stated that he is hard of hearing. He reported that he lives in [place], and is independent at baseline. 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 He identified his son as his main support. He is being treated for the flu, and having a work up to rule out CVA, per report. CM will continue to follow. Town of Residence: [place] Resides with: Alone Significant Other/Family: Local Natural Supports: sonSergio Employment Status: Employed (owns own [employer] business) Instrumental Activities of Daily Living (ADLs): Independent Medications Medication Management: No Issues/Barriers identified Advance Directives Advance Directives: Do you have an Advance Directive: Y 06/15/24 23:11 AD On File at [facility]: Y 06/15/24 23:11 Date Asked 06/15/24 06/15/24 17:18 AD Date Reviewed 06/15/24 06/15/24 23:11 COLST On File at [facility] No 06/15/24 23:11 COLST Date Scanned Code Status Resuscitation Status Full Code Insurance Coverage/Financial Issues Insurance: [facility] Care Team Visit Care Team Role Provider Type María Elena Bradley Primary Care Provider NATUROPATHIC DOCTOR Candice Coto Emergency Provider NURSE PRACTITIONER Cesar Coyle Admit Provider NON-[facility] STAFF PHYSICIAN Attending Provider Discharge Potential Discharge Needs: PCP F/U Appt Anticipated Barriers to Discharge: None Identified Patient/Family Education Needs: Review discharge instructions, discuss Ask Me Three Transportation: Private vehicle Plan: Anticipate Husam will return home once medically cleared. His son will drive him home via private vehicle. He will follow up with his PCP and discharge plan of care. CM will continue to follow. Social Determinants of Health Screening Will the Patient Participate in the Screening?: Unable to obtain PFSH All Active Problems (Updated 06/15/24 @ 22:51 by Cesar Coyle) Hypomagnesemia (Acute) Influenza A H1N1 infection (Acute) TIA (transient ischemic attack) (Acute) Encephalopathy due to influenza A virus (Acute) Pain, foot (Acute) Ingrowing nail (Acute) Corns and callosities (Acute) Medical History Fracture Multiple, cervical and lumbar. S/p fall in early . Social History Smoking/Tobacco Use Status: Never Smoking risk assessment performed?: Yes Alcohol Intake: never Drug use: Never Substance use type: does not use Housing: house Do you feel safe at home: Yes Do you feel safe in your relationship?: Yes
[2024-06-16 17:12] LABS: TSH (W/Ref FT4) 6.88 uIU/mL (0.36-3.74)
[2024-06-16 17:41] LABS: FREE T4 0.71 ng/dL (0.76-1.46)
[2024-06-16] MEDS: Atorvastatin 40 MG TAB 80 MG PO (20:10)
--- NOTE | 2024-06-17 00:01 | DI.MRI_ITS ---
Exam(s) MR BRAIN WO EXAM: MR BRAIN WO CLINICAL HISTORY: Subacute left posterior stroke. TECHNIQUE: Multiplanar multisequence MRI of the brain was performed. COMPARISON: CT CT BRAIN NECK CTA from 06/15/2024 FINDINGS: VENTRICLES AND EXTRA AXIAL SPACES: Normal in size and morphology for the patient's age. MIDLINE SHIFT: None. CEREBRAL PARENCHYMA: No focus of restricted diffusion to suggest acute infarct. No space-occupying le renea identified. Mild atrophy consistent with the patient's age. Mild scattered foci of high signal in the white matter consistent with sequela of chronic microvascular disease. BRAINSTEM/CEREBELLUM: Normal. VISUALIZED PARANASAL SINUSES: Clear. MASTOIDS:Clear. Vasculature: Normal flow void. PITUITARY GLAND: Unremarkable. ORBITS: Unremarkable. IMPRESSION: Unremarkable MRI of the brain. DATA REPOSITORY:
[2024-06-17 03:05] VITALS: BP 153/61; PULSE 47; RESP 17; TEMP 37.3; O2SAT 95
[2024-06-17] MEDS: Heparin 5,000 UNITS/ML VIAL 5000 UNITS SC ×3 (05:39→23:19)
[2024-06-17] MEDS: Normal Saline Flush 10 ML SYR IVP ×3 (05:39→20:26)
[2024-06-17 07:14] LABS: HCT 41.3 % (40.0-50.0); HGB 13.3 g/dL (13.5-17.5); MCH 27.3 pg (27.0-33.0); MCHC 32.2 % (32.0-36.0); MCV 85 fL (80-95); MPV 10.5 fL (8.0-11.0); Platelet Count 164 10^3/uL (130-400); RBC 4.88 10^6/uL (4.36-5.78); RDW 15.9 % (11.8-14.1); RDW-SD 48.8 fL
[2024-06-17 07:49] LABS: ALT 20 U/L (16-63); AST 18 U/L (15-37); Albumin 2.9 g/dL (3.4-5.0); Alkaline Phosphatase 77 U/L (46-116); Anion Gap 8.8 mmol/L (3-11); BUN 14 mg/dL (7-18); Bilirubin, Total 0.38 mg/dL (0.2-1.0); CO2 26.2 mmol/L (21.0-32.0); CREATININE 0.8 mg/dL (0.70-1.30); Calcium 8.2 mg/dL (8.5-10.1); Chloride 104 mmol/L (98-107); Estimated GFR 91.15 (mL/min/1.73m2); Glucose 80 mg/dL (74-106); Magnesium 1.9 mg/dL (1.8-2.4); Potassium 4.3 mmol/L (3.5-5.1); Sodium 139 mmol/L (136-145); Total Protein 6.2 g/dL (6.4-8.2)
[2024-06-17 07:52] VITALS: BP 147/62; PULSE 52; RESP 18; TEMP 37.4; O2SAT 96
--- NOTE | 2024-06-17 09:30 | DI.US_ITS ---
APPROVED REPORT EXAM: Comprehensive 2D, Doppler, and color-flow Echocardiogram Patient Location: In-Patient Room/Bed: [address] Setup Operator: Jassi Starr RDCS (AE) Indications: Subacute CVA, flu Echo Enhancing Agent Indication: Rule out Shunt Agent(s) / Amount(s) Used: Agitated Saline 30.0 cc Comments: Contrast study was performed with 3 IV injections of 10ccs of agitated normal saline, at st, with cough and post valsalva maneuver. Other Information Technically limited study due to poor subcostal visualization. Conclusion Normal left ventricular wall thickness and chamber size. Ejection fraction is 55 to 60%. Wall motio n is normal Normal right ventricular size and function Moderately dilated left atrium. Normal right atrial size No intracardiac shunting is identified with injection of agitated saline The aortic valve is sclerotic and trileaflet with trace regurgitation Estimated right ventricular systolic pressure is 22 mmHg Ascending aorta measures 3.72 cm Wall motion Left Ventricle The left ventricle is normal size. The left ventricular systolic function is normal. The left ventric ular ejection fraction is within the normal range. There is normal left ventricular wall thickness. T here is normal LV segmental wall motion. There is no ventricular septal defect visualized. LVEF is 55 -60%. Right Ventricle The right ventricle is normal size. The right ventricular systolic function is normal. Atria Left atrium is moderately dilated. The right atrium size is normal. The interatrial septum is intact with no evidence for an atrial septal defect. Aortic Valve Aortic valve is trileaflet and sclerotic. There is no aortic valvular stenosis. Trace aortic regurgit ation. Mitral Valve The mitral valve is normal in structure. No evidence of mitral valve stenosis. There is no mitral sana ve regurgitation noted. Tricuspid Valve The tricuspid valve is normal in structure. There is no tricuspid valve stenosis. Mild tricuspid regu rgitation. The RVSP is 22 mmHg. Pulmonic Valve The pulmonary valve is normal in structure. There is no pulmonic valvular stenosis. Mild pulmonic reg urgitation. Great Vessels The aortic root is normal in size. The ascending aorta is mildly dilated. Aortic arch is not well vis ualized. IVC is normal in size and collapses >50% with inspiration. Pericardium There is no pericardial effusion. 2D Dimensions IVSD d PLAX 0.81 cm M: 0.6-1.2 Ao Root d 3.19 cm M: 3.1 - 3.7 LVPW d PLAX 0.76 cm M: 0.6 - 1.2 Ao Asc Diam d 3.72 cm M: 2.6 - 3.4 LVID d PLAX 4.94 cm M: 4.2 - 5.8 LVDs 3.51 cm M: 2.5 - 4.0 LV EF Teichholz 55.3 % FS 28.85 % LV EDV (Teich) 114.9 mL LV ESV (Teich) 51.4 mL Stroke Vol Index (Teich) 28.63 M-Mode TAPSE 1.88 cm (M/F) >1.7 Auto EF LV EDV A4C 196.8 mL LV EDV A2C 117.4 mL LV EDV BP 154.1 mL LV ESV A4C 88.3 mL LV ESV A2C 51.0 mL LV ESV BP 68.7 mL LVEF(%) A4C 55.1 % LVEF(%) A2C 56.5 % LVEF(%) BP 55.4 % LV SV A4C 108.5 ml LV SV A2C 66.4 ml LV SV BP 85.4 ml LV CO A4C 6.4 L/min LV CO A2C 4.2 L/min LV CO BP 5.3 L/min HR A4C 59.29 BPM HR A2C 63.38 BPM LV EDV Index (BP) LA Volume LA Length A4C 5.6 cm LA Length A2C 5.5 cm LA Area A4C s 18.76 cm2 LA Area A2C s 16.28 cm2 LA Vol A4C A-L 53.56 mL LA Vol A2C A-L 40.82 mL LA Vol Biplane A-L 47.1 mL LA Vol/BSA A4C A-L LA Vol/BSA A2C A-L LA Vol/BSA BP A-L 21.2 mL/m2 LA Vol A4C MOD 50.7 mL LA Vol A2C MOD 38.1 mL LA Vol BP MOD 43.8 mL RA Volume RA Area A4C 11.2 cm2 RA ESV A4C (A-L) 22.7mL RA Vol/BSA A4C A-L RA Length A4C 4.7 cm RA ESV A4C (MOD) 23.2mL LV Diastology MV E' medial 0.079 (>0.07 m/s) MV E Vmax 0.51 (0.4-1.3 m/s) MV E/E' MED 6.55 (<14) MV A Vmax 0.80 (0.4-1.3 m/s) MV E' lateral 0.120 (>0.1 m/s) E/A Ratio 0.6 MV E/E' LAT 4.29 (<14) MV E' Average 0.099 m/s MV E/E'(average) 5.19 Aortic Valve AoV Vmax 1.56 m/s LVOT Vmax 0.97 m/s AoV Peak Grad 9.8 mmHg LVOT Peak Grad 3.8 mmHg AoV Area (Vmax) 2.23 cm2 LVOT VTI 0.247 m AoV VTI 0.346 m LVOT Mean Grad 2.2 mmHg AoV Mean Cameron. 1.06 m/s LVOT SV 88.35 mL AoV Mean Grad 5.2 mmHg LVOT Diam s 2.10 cm AoV Area (VTI) 2.55 cm2 AV Regurg Peak Gr. 9.76 mmHg Velocity Ratio 0.62 Mitral Valve MV DT 320 (160-240 msec) MV Vmax TIPS 0.73 m/s MV Mean Grad 0.7 (<2mmHg) MV VTI 0.239 m Tricuspid Valve RA Pressure 3.00 mmHg TR Vmax 2.18 m/s TR Peak Grad 18.9 mmHg RVSP (TR) 21.9 mmHg
[2024-06-17 11:01] VITALS: BP 176/80; PULSE 53; RESP 20; TEMP 37.6; O2SAT 96
[2024-06-17] MEDS: Aspirin 81 MG CHEW PO (11:11)
[2024-06-17] MEDS: Oseltamivir 75 MG CAP PO ×2 (11:11→20:25)
--- NOTE | 2024-06-17 13:30 | PGE_ITS ---
Date of Service Date of service: 06/17/24 Time of Service: 13:30 Assessment and Plan Assessment and plan (1) Encephalopathy due to influenza A virus: Start date: 06/15/24 Status: Acute Assessment and plan: -Presented with recent URI symptoms and confusion found to have influenza A. -He was initiated on Tamiflu which will be continued. -Blood cultures ordered, UA negative. -Continue supportive care and encourage oral fluids with no IV hydration for now. -Initially concern for subacute posterior left CVA however, MRI was negative -There are no acute localizing neurological findings and teleneurology was not consulted and will not be consulted unless changes. -Patient was initiated on aspirin. -echocardiogram with bubble study and MRI without any acute findings or signs of CVA (2) Influenza A H1N1 infection: Status: Acute Assessment and plan: -Supportive care with Tamiflu initiated. (3) TIA (transient ischemic attack): Start date: 06/15/24 Status: Acute Assessment and plan: -Stroke workup negative as above -Monitor for change in neurological status with teleneurology if changes. -Continue high-dose statin. (4) Hypomagnesemia: Start date: 06/15/24 Status: Acute Assessment and plan: Replete with IV magnesium sulfate and follow-up lab. Subjective Subjective Interval history since last seen: Patient states that he is continues to feel better, more clear mentally, and closer to his baseline. However, he states he is still somewhat off balance with walking. He understands he will work with physical therapy and otherwise has no other complaints or concerns at this time. Exam Narrative Exam Narrative: Elderly gentleman laying in bed in no acute distress, awake, alert, oriented to person and place, heart regular rate rhythm, lungs clear to auscultation bilaterally, abdomen soft, nontender, nondistended, cranial nerves II through XII intact, normal sensation and strength in bilateral upper and lower extremities Objective Last Vital Signs Temp 99.7 F H 06/17/24 11:01 Pulse 53 L 06/17/24 11:01 Resp 20 06/17/24 11:01 BP 176/80 H 06/17/24 11:01 Pulse Ox 96 06/17/24 11:01 Laboratory Results - last 24 hr 06/16/24 06/17/24 06:13 06:50 WBC 3.80 L RBC 4.88 Hgb 13.3 L Hct 41.3 MCV 85 MCH 27.3 MCHC 32.2 RDW 15.9 H Plt Count 164 MPV 10.5 Sodium 139 Potassium 4.3 Chloride 104 Carbon Dioxide 26.2 Anion Gap 8.8 BUN 14 Creatinine 0.8 Est GFR (CKD-EPI 2020) 91.15 Glucose 80 Calcium 8.2 L Magnesium 1.9 Total Bilirubin 0.38 AST 18 ALT 20 Alkaline Phosphatase 77 Total Protein 6.2 L Albumin 2.9 L TSH 6.88 H Free T4 0.71 L Time Spent with Patient Time Spent with Patient: >50 minutes Time was spent: preparing to see the patient(eg.review tests), obtaining and/or reviewing separately otained hiistory, ordering medications,tests, procedures, referring, communicating with other health technical healthcare consultant, indepentently interpreting results, counseling the patient and care coordination
--- NOTE | 2024-06-17 14:23 | IN_ITS ---
PT Notes Visit Reasons: Encephalopathy, Influenza A, Subacute left posteri Physical Therapy Inpatient Initial Evaluation Date: 06/17/2024 Referring Doctor: John Epps MD PT Orders: PT CONSULT: Eval/treat Precautions: Fall. On droplet precautions for influenza A infection. Activity as tolerated. Patient Profile/Admitting Diagnosis: Enrique is a 78-year-old male admitted to the ED with chief complaints of confusion and unsteadiness with walking. 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 Patient is admitted for management of encephalopathy due to influenza A virus infection, TIA, and hypomagnesemia. PMHX: All Active Problems (Updated 06/15/24 @ 22:51 by Cesar Coyle) Hypomagnesemia (Acute) Influenza A H1N1 infection (Acute) TIA (transient ischemic attack) (Acute) Encephalopathy due to influenza A virus (Acute) Pain, foot (Acute) Ingrowing nail (Acute) Corns and callosities (Acute) Medical History Fracture Multiple, cervical and lumbar. S/p fall in early . Social History/Home Situation: Lives alone in a private home with 10 steps to enter. Son lives next-door. Independent with all aspects of ADLs prior to admission. Equipment Owned/DME: None Subjective: Feels unsteady while walking. Still not back to his baseline abilities. Agreeable to PT services. Objective: General Observation: Telemetry monitoring in place. Resting in bed. Mental Status: Alert and oriented as to person, place, and purpose. Able to pay attention, focus, and respond appropriately. Pain: None reported Vital Signs: Closely monitored via tele ROM: Right Upper Extremity: Shoulder Flexion allows up to 90 degrees only. Shoulder abduction allows up to 90 degrees only. Elbow flexion WFL. Wrist flexion WFL. Functional opening and closing of hand WFL. Left Upper Extremity: Shoulder Flexion allows up to 100 degrees only. Shoulder abduction allows up to 100 degrees only. Elbow flexion WFL. Wrist flexion WFL. Functional opening and closing of hand WFL. Right Lower Extremity: Hip flexion WFL. Hip abduction WFL. Knee flexion WFL. Ankle dorsiflexion WFL. Ankle plantarflexion WFL. Left Lower Extremity: Hip flexion WFL. Hip abduction WFL. Knee flexion WFL. Ankle dorsiflexion WFL. Ankle plantarflexion WFL. Strength: Right Upper Extremity: Shoulder flexors 3-/5. Shoulder abductors 3-/5. Elbow flexors 4-/5. Elbow extensors 4-/5. Endoscopy Registered Nurse strong. Left Upper Extremity: Shoulder flexors 3-/5. Shoulder abductors 3-/5. Elbow flexors 4-/5. Elbow extensors 4-/5. Endoscopy Registered Nurse strong. Right Lower Extremity: Hip flexors 4-/5. Hip abductors 4-/5. Knee flexors 4/5. Knee extensors 4/5. Ankle dorsiflexors 4-/5. Ankle plantarflexors 4-/5. Left Lower Extremity: Hip flexors 4-/5. Hip abductors 4-/5. Knee flexors 4/5. Knee extensors 4/5. Ankle dorsiflexors 4-/5. Ankle plantarflexors 4-/5. Bed Mobility/Transfers: Supine to sit supervision Sit to supine supervision Sit to stand supervision Stand to sit supervision Gait: Facilitated safe and correct navigation of level surface ambulation in the hallway covering a distance of 500 feet using no assistive device with minimal path deviation and narrowed base of support. Drifts to the R minimally. Standby assist only. Stairs: Guided patient with safe negotiation of 3 x 4 inch steps 2 x 6 inch steps with step over step pattern while holding onto one rail requiring only standby assist. Balance: Static Sitting: Normal Dynamic Sitting: Normal Static Standing: Fair Dynamic Standing: Fair 4-Stage Balance Test: Feet together 10 seconds Semi-tandem 10 seconds Full tendon 6 seconds ne legged stance deferred due to safety Rapid alternating movement: Impaired Pronator drift: Positive on R Romberg Test: Minimal sway but no LOB Special Tests: Mobility Limitations Standardized Measure [facility] AM-PAC 6 clicks Basic Mobility Inpatient Short Form: Raw Score: 22 CMS Score: 21% deficit Informed Consent/Education: Patient was instructed in purpose of PT consult and plan of care. Agreeable to proceed with established PT POC to achieve personal goals. Assessment: Patient requires stand by assist to navigate med surg hallway due to minimal path deviation and some verbalization of unsteadiness. He will be seen while here for balance and strength progression to facilitate return to PLOF. Patient presents with clinical signs and symptoms consistent with current/admitting diagnoses that have resulted to mobility limitations, gait instability, generalized weakness, and overall ADL decline as demonstrated by the following impairment level findings: 1. Decreased strength to B UE major muscle groups with R modere affected than L 2. Impaired sitting/standing balance 3. Impaired activity tolerance 4. Limitation of joint range of motion in B shoulder flexion and abduction 5. Impaired 4-stage balance Test Impairments are contributing to the following functional limitations: 1. Increased completion time for mobility ADL performance 2. Increased risk for falls 3. Difficulty with managing steps alone safely Patient is assessed as a 97287 moderate complexity based on the following: History: 78-year-old male complaining with past medical history as indicated above Examination: Demonstrable impairment in strength, balance, and mobility level with underlying impairments and functional limitations as exhibited above as well as deficit score of 21% utilizing the [facility] Mobility Inpatient Short Form Presentation: Evolving Decision Makin moderate complexity Goals: Goals X1 week 1. Supine-Sit independent 2. Sit-Supine independent 3. Sit-Stand independent 4. Stand-Sit independent 5. Bed-Chair independent 6. Chair-Bed independent 7. Independent gait on level surface with use of no AD for at least 600 feet without report of pain nor dyspnea 8. Independent stair negotiation while holding onto B rails for at least 10 steps without report of pain nor dyspnea 9. Independent with home exercise program 10. Good static and dynamic standing balance/tolerance Plan of Care/Treatment Plan: 1-2x/day, 7 days/week x 1 week. Plan of care has been reviewed with the LIFE MANAGER providing the service under Physical Therapy direction. Initiate Physical Therapy intervention for pain management as needed, strengthening, bed mobility, transfers, gait, stairs, balance training, and use of assistive device. DISCHARGE RECOMMENDATIONS: [] Home with no services [ [X] Home with services. Patient will benefit from home health PT services in order to progress mobility level as well as balance skills to reduce fall risk and facilitate full return to PLOF. [] Home with outpatient PT [] [] SNF for continued rehabilitation [] [] [facility] [] [] SNF versus LTC based on ability to participate and progress [] TREATMENT CODE/TIME: 36288 x 20 minutes for 1 unit (14:23?14:43). Thank you for the opportunity to participate in the care of this patient. Azalia Canales PT, DPT, CLT [facility] [place], [place]
--- NOTE | 2024-06-17 15:02 | CMPROGNOTE_ITS ---
Date of service: 06/17/24 Time of Service: 15:02 Care Management Progress Note Progress Note Text Progress Note Text: Husam was lying in bed when CM met with him. He stated that he is feeling a little better than when he arrived. He stated that his son, Sergio brought him the [facility] Record today, which he was happy about, as he reads it daily. Per report, he will likely be ready for discharge tomorrow, if he continues to improve; he is happy with this plan. He stated that his son will likely drive him home when he is discharged. CM sent a referral to [facility], as he would be interested in talking with them about community services; he stated that it would be helpful to have someone help him around the house. CM will continue to follow. Discharge Potential Discharge Needs: PCP F/U Appt Anticipated Barriers to Discharge: None Identified Patient/Family Education Needs: Review discharge instructions, discuss Ask Me Three Transportation: Private vehicle Plan: Anticipate Husam will return home once medically cleared. His son will drive him home via private vehicle. He will follow up with his PCP and discharge plan of care. CM will continue to follow. Social Determinants of Health Screening Will the Patient Participate in the Screening?: Unable to obtain
[2024-06-17 15:26] VITALS: BP 163/65; PULSE 47; RESP 17; TEMP 36.3; O2SAT 97
[2024-06-17] MEDS: Atorvastatin 40 MG TAB 80 MG PO (20:25)
[2024-06-17 20:30] VITALS: BP 144/61; PULSE 44; RESP 17; TEMP 36.3; O2SAT 99
[2024-06-17 23:16] VITALS: BP 164/68; PULSE 42; RESP 16; TEMP 36.5; O2SAT 95
[2024-06-18 04:03] VITALS: BP 133/50; PULSE 38; RESP 19; TEMP 36.3; O2SAT 95
[2024-06-18] MEDS: Heparin 5,000 UNITS/ML VIAL 5000 UNITS SC (05:44)
[2024-06-18 07:04] LABS: HCT 41.9 % (40.0-50.0); HGB 13.5 g/dL (13.5-17.5); MCH 27.1 pg (27.0-33.0); MCHC 32.2 % (32.0-36.0); MCV 84 fL (80-95); MPV 10.5 fL (8.0-11.0); Platelet Count 183 10^3/uL (130-400); RBC 4.98 10^6/uL (4.36-5.78); RDW 15.7 % (11.8-14.1); RDW-SD 47.2 fL
[2024-06-18 07:21] LABS: ALT 16 U/L (16-63); AST 16 U/L (15-37); Albumin 2.9 g/dL (3.4-5.0); Alkaline Phosphatase 81 U/L (46-116); Anion Gap 4.8 mmol/L (3-11); BUN 13 mg/dL (7-18); Bilirubin, Total 0.32 mg/dL (0.2-1.0); CO2 28.2 mmol/L (21.0-32.0); CREATININE 0.8 mg/dL (0.70-1.30); Calcium 8.3 mg/dL (8.5-10.1); Chloride 104 mmol/L (98-107); Estimated GFR 91.15 (mL/min/1.73m2); Glucose 106 mg/dL (74-106); Magnesium 2.1 mg/dL (1.8-2.4); Potassium 4.2 mmol/L (3.5-5.1); Sodium 137 mmol/L (136-145); Total Protein 6.2 g/dL (6.4-8.2)
[2024-06-18 08:02] VITALS: BP 158/72; PULSE 46; RESP 15; TEMP 36.4; O2SAT 97
--- NOTE | 2024-06-18 08:36 | PDOC.HHF2F_ITS ---
Home Health Referral Home Health Orders Clinical synopsis of why skilled professionals are needed: Flu A, infectious encephalopathy, weakness Physical Therapist: Check all that apply Increase strength & endurance for safe mobility at home: Ordered To design/establish home maintenance program: Ordered Fall reduction therapy program for patient with history of frequent falls: Ordered Home safety evaluation and teaching/gait training including stair management (if applicable): Ordered Encounter Date and Reason: I certify that a FTF encounter for this patient was performed on June 18, 2024 and that such encounter was related to the primary reason the patient requires home health services. The encounter was conducted in the following man ner: * By me as the certifying physician, INNOVATION MANAGER, PA or * By an inpatient physician, INNOVATION MANAGER or PA during an inpatient stay who communicated findings to me, Certification And Authentication I certify that I composed the above information based on my clinical judgment relating to this patient's medical condition and, if applicable, clinical findings communicated to me by the NPP or inpatient physician who performed the FTF encounter. Name of Provider that will be monitoring home health services: María Elena Bradley
--- NOTE | 2024-06-18 08:37 | W.PM.DS.N ---
Date of service: 06/18/24 Time of Service: 08:37 DS: Diagnosis Discharge Diagnosis (1) Encephalopathy due to influenza A virus: Status: Acute (2) Influenza A H1N1 infection: Status: Acute (3) TIA (transient ischemic attack): Status: Acute (4) Hypomagnesemia: Status: Acute Discharge Plan Disposition Patient Disposition: Home W/Home Health Services Condition: Good Discharge Details Reason For Visit: Encephalopathy, Influenza A, Subacute left posteri Admit Date/Time: 06/15/24 22:48 Admit Provider: Cesar Coyle Attending Provider: Cesar Coyle Primary Care Provider: Morena Bradleyfer Hospital Course Hospital Course: Patient initially presented with encephalopathy was ultimately determined to be secondary to an influenza infection. There also have signs of possible CVA on head CT on admission but MRI of PAD was without any acute findings. Additionally, echocardiogram was also without acute findings. During hospitalization patient was treated with Tamiflu and his mental status improved back to baseline. He was also seen by physical therapy determined that he would benefit from home health physical therapy services. At which time was determined that the patient was stable for discharge home with home health services. Home Meds and New Rx's Prescriptions: No Action No Known Home Meds Discharge Instructions Activity:: Activity as Tolerated Equipment/Supplies:: No Equipment Needed Diet:: As Tolerated Discharge Orders Discharge Orders: Discharge Order (Routine); Ordered 06/18/24 Ordered By: John Epps DS: Summary Time Spent with Patient providing and/or coordinating discharge services: Greater than 30 minutes Status at Discharge Functional status at discharge: independent ambulation Overall status at discharge: patient is back to baseline Mental Status: mental status grossly normal Speech and Movement: speech and movement normal Mood: congruent mood Affect: normal affect Quality:SDOH Health Related Social Needs: No Data to Display Exam Narrative Exam Narrative: Elderly gentleman laying in bed in no acute distress, awake, alert, oriented to person and place, heart regular rate rhythm, lungs clear to auscultation bilaterally, abdomen soft, nontender, nondistended, cranial nerves II through XII intact, normal sensation and strength in bilateral upper and lower extremities Psych Mental Status: mental status grossly normal Speech and Movement: speech and movement normal Mood: congruent mood Affect: normal affect DS: Data Vitals/I&O Vitals and I&O: Vital Signs Temperature 97.5 F L 06/18/24 08:02 Temperature Source Temporal Artery Scan 06/18/24 08:02 Pulse 46 L 06/18/24 08:02 Pulse Rhythm Regular 06/16/24 16:06 Pulse 52 L 06/16/24 14:40 Respiratory Rate 15 06/18/24 08:02 Respiratory Effort Normal 06/16/24 16:06 Respiratory Depth Normal 06/16/24 16:06 Respiratory Pattern Normal 06/16/24 16:06 Blood Pressure 158/72 H 06/18/24 08:02 Blood Pressure Mean 116 06/16/24 15:01 Pulse Oximetry 97 06/18/24 08:02 Oxygen Delivery Method Room Air 06/18/24 08:02 Oxygen Flow Rate 0 06/18/24 08:02 Pain Level 0 06/18/24 08:02 Comment Notifying RN on vitals 06/17/24 15:26 Intake & Output 06/17/24 06/18/24 06/18/24 17:59 05:59 17:59 Intake Total 360 / 360 Output Total 650 / 650 Balance -290 / -290 Weight 152 lb 8.958 oz Intake: Oral 360 / 360 Output: Urine 650 / 650 Other: Urine Color Yellow Yellow Urine Appearance Clear Urine Odor Normal Normal Comment pT voided independantly Data Completed and Pending Labs on day of discharge: Labs from last 24 hours 06/18/24 06:15 WBC 5.10 RBC 4.98 Hgb 13.5 Hct 41.9 MCV 84 MCH 27.1 MCHC 32.2 RDW 15.7 H Plt Count 183 MPV 10.5 Sodium 137 Potassium 4.2 Chloride 104 Carbon Dioxide 28.2 Anion Gap 4.8 BUN 13 Creatinine 0.8 Est GFR (CKD-EPI 2020) 91.15 Glucose 106 Calcium 8.3 L Magnesium 2.1 Total Bilirubin 0.32 AST 16 ALT 16 Alkaline Phosphatase 81 Total Protein 6.2 L Albumin 2.9 L Preliminary micro results at discharge 06/16/24 08:35 Blood Culture - Preliminary Blood NO GROWTH 24 HOURS 06/16/24 08:25 Blood Culture - Preliminary Blood NO GROWTH 24 HOURS PFSH All Active Problems (Updated 06/18/24 @ 08:36 by John Epps MD) Hypomagnesemia (Acute) Influenza A H1N1 infection (Acute) TIA (transient ischemic attack) (Acute) Encephalopathy due to influenza A virus (Acute) Pain, foot (Acute) Ingrowing nail (Acute) Corns and callosities (Acute) Medical History Fracture Multiple, cervical and lumbar. S/p fall in early . Social History Smoking/Tobacco Use Status: Never Smoking risk assessment performed?: Yes Alcohol Intake: never Drug use: Never Substance use type: does not use Housing: house Do you feel safe at home: Yes Do you feel safe in your relationship?: Yes Time Spent with Patient Time Spent with Patient: <45 minutes Time was spent: preparing to see the patient(eg.review tests), obtaining and/or reviewing separately otained hiistory, ordering medications,tests, procedures, referring, communicating with other health career development specialist, indepentently interpreting results, counseling the patient and care coordination
[2024-06-18] MEDS: Aspirin 81 MG CHEW PO (09:14)
[2024-06-18] MEDS: Oseltamivir 75 MG CAP PO (09:14)
--- NOTE | 2024-06-18 10:04 | PT.INTREAT ---
PT Notes Visit Reasons: Encephalopathy, Influenza A, Subacute left posteri Physical Therapy Inpatient Treatment Note Date: 06/18/2024 Precautions: Fall. On droplet precautions for influenza A infection. Activity as tolerated. Subjective: Son was wondering if patient will need a walker for home. Hoping to take his father home if cleared today. Agreeable to outpatient PT services for strengthening and balance skilling. Objective: General Observation: Telemetry monitoring in place. Resting in bed. Mental Status: Alert and oriented as to person, place, and purpose. Able to pay attention, focus, and respond appropriately. Pain: None reported Vital Signs: Closely monitored via tele Bed Mobility/Transfers: Supine to sit supervision Sit to supine supervision Sit to stand supervision Stand to sit supervision Gait: Facilitated safe and correct navigation of level surface ambulation in the hallway covering a distance of 600 feet using no assistive device with minimal path deviation and narrowed base of support. Drifts to the R minimally but able to self correct to prevent obstacle collision. Standby assist only. Decreased arm swing. Stairs: Guided patient with safe negotiation of 3 x 4 inch steps 2 x 6 inch steps with step over step pattern while holding onto one rail requiring only standby assist. Balance: Static Sitting: Normal Dynamic Sitting: Normal Static Standing: Good Dynamic Standing: Fair Assessment: Patient will benefit from continued outpatient physical therapy for balance skilling and general body conditioning. Plan of Care/Treatment Plan: 1-2x/day, 7 days/week x 1 week. Plan of care has been reviewed with the LEAD PROCESS ENGINEER providing the service under Physical Therapy direction. Initiate Physical Therapy intervention for pain management as needed, strengthening, bed mobility, transfers, gait, stairs, balance training, and use of assistive device. DISCHARGE RECOMMENDATIONS: [] Home with no services [ [X] Home with services. Patient will benefit from home health PT services in order to progress mobility level as well as balance skills to reduce fall risk and facilitate full return to PLOF. [] Home with outpatient PT [] [] SNF for continued rehabilitation [] [] [employer] [facility] [] [] SNF versus LTC based on ability to participate and progress [] TREATMENT CODE/TIME: 85573 x 24 minutes for 1 unit (10:04?1028).
--- NOTE | 2024-06-18 12:18 | PDOC.CMDIS ---
Date of service: 06/18/24 Time of Service: 12:18 LACE Index Scoring Tool Questions: Length of Stay (in days): 3 Was the patient admitted via the E.D.?: Yes Comorbidities: Cerebrovascular Disease E.D. Visits: 0 Answers: Total Score: 7 Risk of Readmission: Low Risk Care Management Discharge Plan Reason for Hospitalization: encephalopathy, influenza A Discharge Plan: Husam returned home today with a referral for outpatient PT. The referral was sent to [facility], at the family's request. He will follow up with his PCP and discharge plan of care. He is happy to be going home. Patient/Family Education Needs: Review discharge instructions and limitations, discussion of self care needs including ask me three. Services Needed at Discharge: Physical Therapy (O/P PT) SDOH Health Related Social Needs: No Data to Display
== END 2024-06-18 11:51 | disposition home health service (06) | DRG 194 ==
LOC: ER 21:05 → EDHOLD 22:58 → MS 06-16 15:57
PROVIDERS: Admitting Provider Family Medicine; Emergency Provider Nurse Practitioner Family; PCP Naturopath; Visit Provider Family Medicine
DX: J10.1 Influenza due to other identified influenza virus with other respiratory manifestations (principal); G45.9 Transient cerebral ischemic attack, unspecified; G93.49 Other encephalopathy; E83.42 Hypomagnesemia
CPT/HCPCS: 00123; 36410; 36415; 36416; 70496; 70498; 80053; 82962; 85027; 87040; 87637; 93005; 93306; 96372; 97162; 97530; 99285; 70551; 71046; 81003; 83735; 84439; 84443; 84484; 85025; 93010; 99223; 99233; 99239; J1644; J3475; J3490